=== PATIENT | male | born 1945 | race Caucasian/White ===

== ENCOUNTER 2017-12-06 09:14 | Inpatient (IN) | payer MEDICARE, OTHER ==
[~2017-12-06] VITALS: Ht 180.3 cm; Wt 79.9 kg
[~2017-12-06 09:14] MED LIST: COLC0.6T69 PO; FURO80TA87 PO; METH4TAB81 PO
[2017-12-06 09:54] LABS: BASOPHILS % (AUTO) 0.5 % (0-1); EOSINOPHILS # (AUTO) 0.6 X10'3 (0-0.9); EOSINOPHILS % (AUTO) 7.8 % (0-6); HEMOGLOBIN 12.2 g/dl (14.0-17.9); MEAN CORPUSCULAR HEMOGLOBIN 31.2 PG (27.0-31.0); MEAN CORPUSCULAR HGB CONC 33.9 % (33.0-36.5); MEAN PLATELET VOLUME 8.4 FL (7.4-10.4); MONOCYTES # (AUTO) 0.6 X10'3 (0-0.9); NEUTROPHILS % (AUTO) 60.7 % (42-75); PLATELET COUNT 243 X10'3 (140-440); RED BLOOD COUNT 3.91 X10'6 (4.70-6.10); RED CELL DISTRIBUTION WIDTH 16.8 % (11.5-14.5); WHITE BLOOD COUNT 8.2 X10'3 (4.5-11.0)
[2017-12-06 10:04] LABS: PARTIAL THROMBOPLASTIN TIME 25 SECONDS (22-32); PROTHROMBIN TIME 10.7 SECONDS (9.0-12.0)
[2017-12-06 10:10] LABS: ALANINE AMINOTRANSFERASE 18 U/L (12-78); ALBUMIN 4.3 G/DL (3.4-5.0); ALBUMIN/GLOBULIN RATIO 1.1 (1.1-1.5); ALKALINE PHOSPHATASE 106 IU/L (46-116); ANION GAP 10 (8-16); ASPARTATE AMINO TRANSFERASE 22 U/L (10-37); BILIRUBIN,TOTAL 0.5 MG/DL (0.1-1.0); BLOOD UREA NITROGEN 42 MG/DL (7-18); BUN/CREATININE RATIO 27.1 (5.4-32.0); CALCIUM 9.1 MG/DL (8.5-10.1); CHLORIDE 104 MMOL/L (99-107); CREATININE 1.55 MG/DL (0.60-1.10); GLUCOSE 109 MG/DL (70-104); POTASSIUM 4.9 MMOL/L (3.5-5.1); SODIUM 138 MMOL/L (135-145); TOTAL CARBON DIOXIDE 24.2 MMOL/L (24-32); TOTAL PROTEIN 8.1 G/DL (6.4-8.2); eGFR 45 ML/MIN
[2017-12-06] MEDS ORDERED: regadenoson 0.4mg/5ml syringe IV ONE (11:25)
[2017-12-06] MEDS ORDERED: metoprolol tartrate 1mg/ml inj IV PRN (11:25)
[2017-12-06] MEDS ORDERED: aspirin 81mg tab.chew PO ONE (11:25)
[2017-12-06] MEDS ORDERED: aminophylline 250mg/10ml inj. IV PRN (11:25)
[2017-12-06] MEDS ORDERED: HYDROcodone/acetaminophen 5mg/325mg tablet PO PRN (11:25)
[2017-12-06] MEDS ORDERED: ondansetron/PF 4mg/2ml inj IV PRN (11:25)
[2017-12-06] MEDS ORDERED: nitroGLYCERIN 0.4mg SUBLingual tab SL PRN (11:25)
[2017-12-06] MEDS ORDERED: mag hydrox/Alum hydrox/simeth 30ml oral suspension PO PRN (11:25)
[2017-12-06] MEDS ORDERED: magnesium hydroxide 30ml (MOM) UD suspension PO PRN (11:25)
[2017-12-06] MEDS ORDERED: acetaminophen 325mg tablet PO PRN ×2 (11:25)
[2017-12-06] MEDS ORDERED: lisinopril 10 MG tablet PO ONE (11:30)
[2017-12-06] MEDS ORDERED: isoflurane 100ml inhalation liquid IH ONE (13:07)
[2017-12-06 14:30] VITALS: BP 119/62
[2017-12-06 18:00] VITALS: BP 132/68
[2017-12-06] MEDS ORDERED: temazepam 15mg capsule PO PRN (21:00)
[2017-12-06 22:00] VITALS: BP 111/48
[2017-12-07] VITALS (14 sets, daily range): BP systolic 96–152; BP diastolic 38–69
[2017-12-07 05:24] LABS: BASOPHILS % (AUTO) 0.5 % (0-1); EOSINOPHILS # (AUTO) 0.6 X10'3 (0-0.9); EOSINOPHILS % (AUTO) 7.7 % (0-6); HEMOGLOBIN 11.6 g/dl (14.0-17.9); LYMPHOCYTES # (AUTO) 2.2 X10'3 (1.1-4.8); LYMPHOCYTES % (AUTO) 26.4 % (21-51); MEAN CORPUSCULAR HEMOGLOBIN 30.9 PG (27.0-31.0); MEAN CORPUSCULAR HGB CONC 34.2 % (33.0-36.5); MEAN CORPUSCULAR VOLUME 90.4 FL (78-98); MEAN PLATELET VOLUME 8.9 FL (7.4-10.4); MONOCYTES # (AUTO) 0.7 X10'3 (0-0.9); MONOCYTES % (AUTO) 8.6 % (2-12); NEUTROPHILS # (AUTO) 4.7 X10'3 (1.8-7.7); NEUTROPHILS % (AUTO) 56.8 % (42-75); PLATELET COUNT 219 X10'3 (140-440); RED BLOOD COUNT 3.76 X10'6 (4.70-6.10); RED CELL DISTRIBUTION WIDTH 16.3 % (11.5-14.5); WHITE BLOOD COUNT 8.3 X10'3 (4.5-11.0)
[2017-12-07 06:08] LABS: ALBUMIN 3.8 G/DL (3.4-5.0); ANION GAP 14 (8-16); BLOOD UREA NITROGEN 31 MG/DL (7-18); BUN/CREATININE RATIO 27.7 (5.4-32.0); CALCIUM 9.4 MG/DL (8.5-10.1); CHLORIDE 106 MMOL/L (99-107); CHOL/HDL RATIO 6.1 (0.00-4.99); CHOLESTEROL 238 MG/DL (0-200); CREATININE 1.12 MG/DL (0.60-1.10); GLUCOSE 103 MG/DL (70-104); HDL CHOLESTEROL 39 MG/DL (35-60); LDL CHOLESTEROL 144 MG/DL (50-100); POTASSIUM 4.7 MMOL/L (3.5-5.1); SODIUM 141 MMOL/L (135-145); TRIGLYCERIDES 278 MG/DL (20-135); eGFR 65 ML/MIN
[2017-12-07] MEDS: aspirin 81mg tablet.DR PO SCH (07:10)
[2017-12-07] MEDS ORDERED: aminophylline inj. 10 ML IV ONE (08:55)
[2017-12-07] MEDS ORDERED: regadenoson 0.4mg/5ml syringe IV ONE ×2 (08:55→09:00)
[2017-12-07 08:56] LABS: CREATINE KINASE 86 U/L (39-308); TROPONIN I 0.11 NG/ML (0.0-0.05)
[2017-12-07] MEDS ORDERED: sodium chloride 0.45% 1,000 ML IV SCH (12:40)
[2017-12-07] MEDS: sodium bicarbonate (8.4%) inj. 150 MEQ in sodium chloride 0.45% 1,000 ML IV SCH (16:15)
[2017-12-07] MEDS ORDERED: atorvastatin 20mg tablet PO SCH (20:00)
[2017-12-07] MEDS: carVEDilol 3.125mg tablet PO SCH (21:02)
[2017-12-07] MEDS: acetylcysteine 200 MG/ml 4ml vial PO SCH (21:03)
[2017-12-08] VITALS (15 sets, daily range): BP systolic 113–144; BP diastolic 61–83
[2017-12-08] MEDS: sodium bicarbonate (8.4%) inj. 150 MEQ in sodium chloride 0.45% 1,000 ML IV SCH ×2 (03:37→19:18)
[2017-12-08 06:32] LABS: ALBUMIN 3.5 G/DL (3.4-5.0); ANION GAP 9 (8-16); BLOOD UREA NITROGEN 26 MG/DL (7-18); BUN/CREATININE RATIO 22.4 (5.4-32.0); CHLORIDE 103 MMOL/L (99-107); CREATININE 1.16 MG/DL (0.60-1.10); GLUCOSE 123 MG/DL (70-104); POTASSIUM 4.5 MMOL/L (3.5-5.1); SODIUM 140 MMOL/L (135-145); TOTAL CARBON DIOXIDE 27.9 MMOL/L (24-32); eGFR 62 ML/MIN
[2017-12-08] MEDS ORDERED: enoxaparin 40mg/0.4ml syringe SUBCUT SCH (08:00)
[2017-12-08] MEDS: aspirin 81mg tablet.DR PO SCH (08:24)
[2017-12-08] MEDS: carVEDilol 3.125mg tablet PO SCH ×2 (08:24→20:13)
[2017-12-08] MEDS: acetylcysteine 200 MG/ml 4ml vial PO SCH ×2 (08:27→20:00)
[2017-12-08] MEDS ORDERED: iohexol 350MG/ML 100ml bottle IV ONE (10:07)
[2017-12-08] MEDS ORDERED: heparin 1,000unit/ml 10ml vial 10 ML ONE (10:07)
[2017-12-08] MEDS ORDERED: LIDOcaine 1%/PF (10mg/ml) 5ml vial ONE (10:07)
[2017-12-08] MEDS ORDERED: nitroGLYCERIN-Tridil 50MG/D5W 250 ML IV ONE (10:07)
[2017-12-08] MEDS ORDERED: iohexol 350 MG/ML 50ML vial IV ONE ×2 (10:07→10:58)
[2017-12-08] MEDS ORDERED: midazolam 2 mg/2 ml injection ONE (10:08)
[2017-12-08] MEDS ORDERED: fentaNYL/PF 50MCG/1 ML 2ML syringe ONE (10:08)
[2017-12-08] MEDS ORDERED: ringers solution, lacted 1,000 ML IV SCH (13:24)
[2017-12-08] MEDS ORDERED: MESSAGE TO NURSING PO ONE ×2 (13:25)
[2017-12-08] MEDS ORDERED: mupirocin 2% ointment 22GM NS SCH (20:00)
[2017-12-09 03:00] VITALS: BP 125/57
[2017-12-09 05:12] LABS: BASOPHILS % (AUTO) 0.2 % (0-1); EOSINOPHILS # (AUTO) 0.7 X10'3 (0-0.9); EOSINOPHILS % (AUTO) 7.7 % (0-6); HEMATOCRIT 32.9 % (42.0-52.0); HEMOGLOBIN 10.9 g/dl (14.0-17.9); LYMPHOCYTES # (AUTO) 2.2 X10'3 (1.1-4.8); MEAN CORPUSCULAR HEMOGLOBIN 30.7 PG (27.0-31.0); MEAN CORPUSCULAR HGB CONC 33.3 % (33.0-36.5); MEAN CORPUSCULAR VOLUME 92.1 FL (78-98); MEAN PLATELET VOLUME 8.8 FL (7.4-10.4); MONOCYTES # (AUTO) 0.8 X10'3 (0-0.9); MONOCYTES % (AUTO) 8.4 % (2-12); NEUTROPHILS # (AUTO) 5.5 X10'3 (1.8-7.7); NEUTROPHILS % (AUTO) 59.7 % (42-75); PLATELET COUNT 220 X10'3 (140-440); RED BLOOD COUNT 3.57 X10'6 (4.70-6.10); WHITE BLOOD COUNT 9.1 X10'3 (4.5-11.0)
[2017-12-09 05:31] LABS: ALBUMIN 3.3 G/DL (3.4-5.0); ANION GAP 7 (8-16); BLOOD UREA NITROGEN 17 MG/DL (7-18); BUN/CREATININE RATIO 15.7 (5.4-32.0); CHLORIDE 103 MMOL/L (99-107); CHOL/HDL RATIO 6.3 (0.00-4.99); CHOLESTEROL 208 MG/DL (0-200); CREATININE 1.08 MG/DL (0.60-1.10); GLUCOSE 97 MG/DL (70-104); HDL CHOLESTEROL 33 MG/DL (35-60); LDL CHOLESTEROL 119 MG/DL (50-100); POTASSIUM 4.5 MMOL/L (3.5-5.1); SODIUM 140 MMOL/L (135-145); TOTAL CARBON DIOXIDE 29.6 MMOL/L (24-32); TRIGLYCERIDES 268 MG/DL (20-135); eGFR 68 ML/MIN
[2017-12-09 07:00] VITALS: BP 114/63
[2017-12-09] MEDS: carVEDilol 3.125mg tablet PO SCH ×2 (07:52→20:23)
[2017-12-09] MEDS: aspirin 81mg tablet.DR PO SCH (07:52)
[2017-12-09 09:36] LABS: ISTAT Hct MIX 30 %PCV (42-52); ISTAT O2 SATURATION MIX VENOUS 65 % (60-80); ISTAT SOURCE MIX
[2017-12-09 09:36] LABS: ISTAT HGB ART 10.2 g/dl (14.0-18.0); ISTAT Hct ART 30 %PCV (42-52); ISTAT O2 SATURATION ARTERIAL 95 % (95-98); ISTAT SOURCE ART
[2017-12-09] MEDS ORDERED: MESSAGE TO NURSING PO ONE (10:00)
[2017-12-09 11:00] VITALS: BP 122/49
[2017-12-09 15:00] VITALS: BP 139/43
[2017-12-09 17:25] LABS: ABG BASE EXCESS 5.9 mmol/L (-2.0-3.0); ABG HCO3 29.8 mmol/L (22.0-26.0); ABG OXYGEN SATURATION 94.8 % (95-98); ABG PCO2 (T) 40.7 mmHg (35.0-48.0); ABG PH (T) 7.483 (7.350-7.450); ABG PO2 (T) 69.1 mmHg (83-108); ALLEN'S TEST Positive; FCOHb 0.2 % (0.5-1.5); FMetHb 0.3 % (0.3-1.12); FO2Hb 94.3 % (94-100); TOTAL HEMOGLOBIN 13.7 G/dl (14.0-18.0)
[2017-12-09 19:00] VITALS: BP 137/79
[2017-12-09] MEDS: atorvastatin 20mg tablet PO SCH ×2 (20:00→20:23)
[2017-12-09] MEDS: mupirocin 2% ointment 22GM NS SCH (21:31)
[2017-12-09 23:00] VITALS: BP 123/69
[2017-12-10] VITALS (10 sets, daily range): BP systolic 111–148; BP diastolic 48–72
[2017-12-10 05:07] LABS: BASOPHILS # (AUTO) 0.1 X10'3 (0-0.2); BASOPHILS % (AUTO) 0.7 % (0-1); EOSINOPHILS # (AUTO) 0.8 X10'3 (0-0.9); EOSINOPHILS % (AUTO) 7.7 % (0-6); HEMATOCRIT 34.2 % (42.0-52.0); HEMOGLOBIN 11.5 g/dl (14.0-17.9); LYMPHOCYTES # (AUTO) 2.3 X10'3 (1.1-4.8); LYMPHOCYTES % (AUTO) 21.6 % (21-51); MEAN CORPUSCULAR HEMOGLOBIN 30.8 PG (27.0-31.0); MEAN CORPUSCULAR HGB CONC 33.6 % (33.0-36.5); MEAN CORPUSCULAR VOLUME 91.7 FL (78-98); MEAN PLATELET VOLUME 8.4 FL (7.4-10.4); MONOCYTES # (AUTO) 0.7 X10'3 (0-0.9); NEUTROPHILS # (AUTO) 6.6 X10'3 (1.8-7.7); PLATELET COUNT 223 X10'3 (140-440); RED BLOOD COUNT 3.73 X10'6 (4.70-6.10); RED CELL DISTRIBUTION WIDTH 16.1 % (11.5-14.5); WHITE BLOOD COUNT 10.5 X10'3 (4.5-11.0)
[2017-12-10 05:22] LABS: PARTIAL THROMBOPLASTIN TIME 22 SECONDS (22-32); PROTHROMBIN TIME 10.6 SECONDS (9.0-12.0)
[2017-12-10 05:30] LABS: ALBUMIN 3.7 G/DL (3.4-5.0); ANION GAP 8 (8-16); BLOOD UREA NITROGEN 20 MG/DL (7-18); BUN/CREATININE RATIO 16.4 (5.4-32.0); CALCIUM 9.1 MG/DL (8.5-10.1); CHLORIDE 103 MMOL/L (99-107); CREATININE 1.22 MG/DL (0.60-1.10); GLUCOSE 111 MG/DL (70-104); POTASSIUM 4.3 MMOL/L (3.5-5.1); SODIUM 140 MMOL/L (135-145); TOTAL CARBON DIOXIDE 29.3 MMOL/L (24-32); eGFR 59 ML/MIN
[2017-12-10] MEDS ORDERED: LORazepam 2 mg/ml vial IV PRN (05:30)
[2017-12-10] MEDS ORDERED: famotidine 20mg tablet PO ONE ×2 (05:30→12:00)
[2017-12-10] MEDS ORDERED: ringers solution, lacted 1,000 ML IV SCH ×2 (06:00→12:00)
[2017-12-10] MEDS ORDERED: methylPREDNISolone sod. succ. 500mg inj ONE (08:00)
[2017-12-10] MEDS ORDERED: sodium bicarbonate (8.4%) 1 mEq/ml syringe ONE (08:00)
[2017-12-10] MEDS: carVEDilol 3.125mg tablet PO SCH (08:00)
[2017-12-10] MEDS ORDERED: LIDOcaine 2% (20 mg/ml) 5ml cardiac syringe ONE (08:00)
[2017-12-10] MEDS ORDERED: potassium Cl 2 mEq/ml inj IV ONE (08:00)
[2017-12-10] MEDS ORDERED: papaverine 30 mg/ml 2ml inj. ONE (08:00)
[2017-12-10] MEDS ORDERED: albumin (human) 25% 100 ML IV solution IV ONE (08:00)
[2017-12-10] MEDS ORDERED: calcium chloride 100 MG/1 ML inj IV ONE (08:00)
[2017-12-10] MEDS ORDERED: heparin 10,000 units/1 ML INJ ONE ×2 (08:00)
[2017-12-10] MEDS ORDERED: magnesium 1 GM/2 ML inj ONE (08:00)
[2017-12-10] MEDS ORDERED: phenylephrine 10mg/ml inj IV ONE (08:00)
[2017-12-10] MEDS ORDERED: heparin 1,000 units/ml 10ml inj ONE (08:00)
[2017-12-10] MEDS: mupirocin 2% ointment 22GM NS SCH ×2 (08:26→20:04)
[2017-12-10] MEDS: aspirin 81mg tablet.DR PO SCH (08:26)
[2017-12-10] MEDS ORDERED: ceFAZolin inj. 2,000 MG in dextrose 5%-water 100 ML IV ONE (12:30)
[2017-12-10] MEDS: insulin regular, human 100 UNITS in normal saline 100ml IV soln 99 ML IV SCH ×4 (12:30→21:05)
[2017-12-10] MEDS ORDERED: vancomycin/NS 1 GM ADD-VANTAGE 250 ML IV ONE (12:30)
[2017-12-10] MEDS ORDERED: heparin 10,000 units/1 ML INJ IR ONE (12:30)
[2017-12-10] MEDS ORDERED: papaverine 30 mg/ml 2ml inj. IA ONE (12:30)
[2017-12-10] MEDS ORDERED: tranexamic acid inj. 780 MG in normal saline 100ml IV soln 100 ML IV ONE (13:10)
[2017-12-10] MEDS ORDERED: SUFENTANIL CITRATE 50 MCG/ML 2ml ampule IV ONE (13:11)
[2017-12-10] MEDS ORDERED: LORazepam 2 mg/ml vial ONE (13:14)
[2017-12-10] MEDS ORDERED: LIDOcaine 1%/PF (10mg/ml) 5ml vial ONE (13:30)
[2017-12-10] MEDS ORDERED: propofol inj 20 ML IV ONE (13:30)
[2017-12-10] MEDS ORDERED: rocuronium 10mg/ml inj IV ONE ×2 (13:30→14:10)
[2017-12-10 13:56] LABS: ABG BASE EXCESS 0.2 mmol/L (-2.0-3.0); ABG HCO3 23.8 mmol/L (22.0-26.0); ABG OXYGEN SATURATION 99.4 % (95-98); ABG PCO2 34.7 mmHg (35.0-45.0); ABG PH 7.454 (7.350-7.450); ABG PO2 333.3 mmHg (60.0-100.0); CL (ABG) 103 mmol/L (99-107); FCOHb 0.3 % (0.5-1.5); FMetHb 0.3 % (0.3-1.12); FO2Hb 98.8 % (94-100); GLUCOSE (ABG) 85 mg/dl (70-105); IONIZED CA (ABG) 1.13 mmol/L (1.03-1.32); K (ABG) 4.3 mmol/L (3.3-5.1); NA (ABG) 137 mmol/L (135-145); TOTAL HEMOGLOBIN 10.5 G/dl (14.0-18.0)
[2017-12-10 14:06] LABS: ACT @ 1.70 U 317 SEC (193-297); ACT @ 2.84 U 426 SEC (260-420); BASELINE ACT 137 SEC (101-148); PATIENT WEIGHT 78.0k KG
[2017-12-10 14:45] LABS: ABG BASE EXCESS 0.4 mmol/L (-2.0-3.0); ABG HCO3 24.5 mmol/L (22.0-26.0); ABG OXYGEN SATURATION 98.8 % (95-98); ABG PCO2 37.2 mmHg (35.0-45.0); ABG PH 7.436 (7.350-7.450); ABG PO2 168.7 mmHg (60.0-100.0); CL (ABG) 105 mmol/L (99-107); FCOHb 0.3 % (0.5-1.5); FMetHb 0.1 % (0.3-1.12); FO2Hb 98.4 % (94-100); GLUCOSE (ABG) 96 mg/dl (70-105); IONIZED CA (ABG) 1.11 mmol/L (1.03-1.32); K (ABG) 4.6 mmol/L (3.3-5.1); NA (ABG) 137 mmol/L (135-145); TOTAL HEMOGLOBIN 10.1 G/dl (14.0-18.0)
[2017-12-10 15:10] LABS: ABG HCO3 23.6 mmol/L (22.0-26.0); ABG OXYGEN SATURATION 99.2 % (95-98); ABG PCO2 33.4 mmHg (35.0-45.0); ABG PH 7.467 (7.350-7.450); ABG PO2 380.7 mmHg (60.0-100.0); CL (ABG) 102 mmol/L (99-107); FCOHb 0.2 % (0.5-1.5); FMetHb 0.5 % (0.3-1.12); FO2Hb 98.5 % (94-100); GLUCOSE (ABG) 96 mg/dl (70-105); IONIZED CA (ABG) 1.03 mmol/L (1.03-1.32); NA (ABG) 133 mmol/L (135-145); TOTAL HEMOGLOBIN 7.7 G/dl (14.0-18.0)
[2017-12-10 15:25] LABS: ABG BASE EXCESS VENOUS -0.8 mmol/L; ABG HCO3 VENOUS 23.4 mmol/L; ABG PCO2 VENOUS 36.8 mmHg; ABG PO2 VENOUS 70.4 mmHg; CL (ABG) 102 mmol/L (99-107); FCOHb VENOUS 0.4 %; FMetHb VENOUS 0.4 %; FO2Hb VENOUS 92.2 %; GLUCOSE (ABG) 100 mg/dl (70-105); IONIZED CA (ABG) 1.07 mmol/L (1.03-1.32); K (ABG) 5.9 mmol/L (3.3-5.1); NA (ABG) 134 mmol/L (135-145); TOTAL HEMOGLOBIN 8.2 G/dl (14.0-18.0)
[2017-12-10 15:55] LABS: ABG BASE EXCESS -1.3 mmol/L (-2.0-3.0); ABG HCO3 22.5 mmol/L (22.0-26.0); ABG OXYGEN SATURATION 99.1 % (95-98); ABG PCO2 33.6 mmHg (35.0-45.0); ABG PH 7.444 (7.350-7.450); CL (ABG) 103 mmol/L (99-107); FCOHb 0.2 % (0.5-1.5); FMetHb 0.5 % (0.3-1.12); FO2Hb 98.4 % (94-100); GLUCOSE (ABG) 101 mg/dl (70-105); IONIZED CA (ABG) 1.09 mmol/L (1.03-1.32); NA (ABG) 133 mmol/L (135-145); TOTAL HEMOGLOBIN 8.4 G/dl (14.0-18.0)
[2017-12-10 16:41] LABS: ABG BASE EXCESS 0.5 mmol/L (-2.0-3.0); ABG HCO3 24.1 mmol/L (22.0-26.0); ABG OXYGEN SATURATION 97.2 % (95-98); ABG PCO2 34.4 mmHg (35.0-45.0); ABG PH 7.464 (7.350-7.450); ABG PO2 99.8 mmHg (60.0-100.0); CL (ABG) 104 mmol/L (99-107); FCOHb 0.3 % (0.5-1.5); FMetHb 0.3 % (0.3-1.12); FO2Hb 96.6 % (94-100); GLUCOSE (ABG) 100 mg/dl (70-105); IONIZED CA (ABG) 1.29 mmol/L (1.03-1.32); NA (ABG) 134 mmol/L (135-145); TOTAL HEMOGLOBIN 8.1 G/dl (14.0-18.0)
[2017-12-10] MEDS ORDERED: DOPamine 400mg/D5W 250ml 250 ML IV PRN (17:15)
[2017-12-10] MEDS ORDERED: HYDROcodone/acetaminophen 10/325mg tab PO PRN ×2 (17:15)
[2017-12-10] MEDS ORDERED: potassium Cl 20mEq/100mL bag 100 ML IV PRN ×3 (17:15)
[2017-12-10] MEDS: sodium chloride 0.45% 1,000 ML IV SCH ×2 (17:15→19:41)
[2017-12-10] MEDS ORDERED: dextrose 50%-water 50ml dispensing syringe IV PRN (17:15)
[2017-12-10] MEDS ORDERED: niCARDipine/sod cl 20mg/200ml 200 ML IV PRN (17:15)
[2017-12-10] MEDS ORDERED: metoclopramide 5 mg/ml inj IV PRN (17:15)
[2017-12-10] MEDS ORDERED: magnesium 2GM in 50ml NS 50 ML IV PRN (17:15)
[2017-12-10] MEDS: insulin regular, human inj. 100 UNITS in normal saline 100ml IV soln 100 ML IV SCH ×2 (17:15)
[2017-12-10] MEDS ORDERED: sodium phosphate inj. 15 MMOL in dextrose 5%-water 150 ML IV PRN (17:15)
[2017-12-10] MEDS ORDERED: sodium phosphate inj. 30 MMOL in dextrose 5%-water 250 ML IV PRN (17:15)
[2017-12-10] MEDS ORDERED: magnesium 4gm in 100ml NS 100 ML IV PRN (17:15)
[2017-12-10] MEDS ORDERED: morphine 4 MG/ML inj SYRINge IV PRN (17:15)
[2017-12-10] MEDS ORDERED: nitroGLYCERIN-Tridil 50MG/D5W 250 ML IV PRN (17:15)
[2017-12-10] MEDS ORDERED: magnesium hydroxide 30ml (MOM) UD suspension PO PRN (17:15)
[2017-12-10] MEDS ORDERED: acetaminophen 325mg tablet PO PRN (17:15)
[2017-12-10] MEDS ORDERED: Neutra Phos packet PO PRN (17:15)
[2017-12-10] MEDS ORDERED: normal saline 250ml IV soln 250 ML IV PRN (17:15)
[2017-12-10 17:36] LABS: ABG BASE EXCESS 1.1 mmol/L (-2.0-3.0); ABG HCO3 24.7 mmol/L (22.0-26.0); ABG OXYGEN SATURATION 97.9 % (95-98); ABG PCO2 (T) 34.6 mmHg (35.0-48.0); ABG PO2 (T) 128.2 mmHg (83-108); FCOHb 0.2 % (0.5-1.5); FMetHb 0.2 % (0.3-1.12); FO2Hb 97.5 % (94-100); PATIENT TEMPERATURE 36.7; PEEP 5 cm H2O; RESPIRATORY RATE 12 b/min; TIDAL VOLUME 600 mL; TOTAL HEMOGLOBIN 9.8 G/dl (14.0-18.0)
[2017-12-10 17:48] LABS: BASOPHILS % (AUTO) 0.3 % (0-1); EOSINOPHILS # (AUTO) 0.3 X10'3 (0-0.9); EOSINOPHILS % (AUTO) 2.7 % (0-6); HEMATOCRIT 27.1 % (42.0-52.0); HEMOGLOBIN 9.1 g/dl (14.0-17.9); LYMPHOCYTES # (AUTO) 1.2 X10'3 (1.1-4.8); LYMPHOCYTES % (AUTO) 9.3 % (21-51); MEAN CORPUSCULAR HEMOGLOBIN 31.2 PG (27.0-31.0); MEAN CORPUSCULAR HGB CONC 33.7 % (33.0-36.5); MEAN CORPUSCULAR VOLUME 92.5 FL (78-98); MEAN PLATELET VOLUME 8.3 FL (7.4-10.4); MONOCYTES # (AUTO) 0.6 X10'3 (0-0.9); MONOCYTES % (AUTO) 4.9 % (2-12); NEUTROPHILS # (AUTO) 10.8 X10'3 (1.8-7.7); NEUTROPHILS % (AUTO) 82.8 % (42-75); PLATELET COUNT 163 X10'3 (140-440); RED BLOOD COUNT 2.92 X10'6 (4.70-6.10); RED CELL DISTRIBUTION WIDTH 15.8 % (11.5-14.5)
[2017-12-10] MEDS: albumin (Human) 5% 250ml 250 ML IV PRN ×2 (17:54→18:03)
[2017-12-10] MEDS: morphine 4 MG/ML inj SYRINge IV PRN ×5 (18:00→22:23)
[2017-12-10] MEDS: insulin Lispro (HumaLOG) vial - multi-dose SQ SCH (18:00)
[2017-12-10 18:02] LABS: INR 1.2 INR; PARTIAL THROMBOPLASTIN TIME 24 SECONDS (22-32); PROTHROMBIN TIME 11.9 SECONDS (9.0-12.0)
[2017-12-10 18:14] LABS: ALANINE AMINOTRANSFERASE 13 U/L (12-78); ALBUMIN 2.9 G/DL (3.4-5.0); ALBUMIN/GLOBULIN RATIO 1.2 (1.1-1.5); ALKALINE PHOSPHATASE 64 IU/L (46-116); ANION GAP 9 (8-16); ASPARTATE AMINO TRANSFERASE 25 U/L (10-37); BILIRUBIN,TOTAL 0.6 MG/DL (0.1-1.0); BLOOD UREA NITROGEN 19 MG/DL (7-18); BUN/CREATININE RATIO 17.9 (5.4-32.0); CHLORIDE 107 MMOL/L (99-107); CREATININE 1.06 MG/DL (0.60-1.10); GLUCOSE 113 MG/DL (70-104); MAGNESIUM 3.3 MG/DL (1.5-2.4); PHOSPHORUS 1.8 MG/DL (2.3-4.5); POTASSIUM 5.9 MMOL/L (3.5-5.1); SODIUM 140 MMOL/L (135-145); TOTAL CARBON DIOXIDE 24.4 MMOL/L (24-32); TOTAL PROTEIN 5.4 G/DL (6.4-8.2); eGFR 69 ML/MIN
[2017-12-10] MEDS: ketorolac tromethamine 15mg/ml inj. IV SCH (20:03)
[2017-12-10] MEDS: ceFAZolin 1GM/D5W- ADD-VANTAGE 50 ML IV SCH (20:03)
[2017-12-10] MEDS: docusate sod 100mg capsule PO SCH (20:23)
[2017-12-10] MEDS: ondansetron/PF 4mg/2ml inj IV PRN (20:46)
[2017-12-10 22:45] LABS: BASOPHILS % (AUTO) 0 % (0-1); EOSINOPHILS # (AUTO) 0.1 X10'3 (0-0.9); EOSINOPHILS % (AUTO) 0.8 % (0-6); HEMATOCRIT 23.7 % (42.0-52.0); HEMOGLOBIN 7.9 g/dl (14.0-17.9); LYMPHOCYTES # (AUTO) 0.5 X10'3 (1.1-4.8); LYMPHOCYTES % (AUTO) 3.8 % (21-51); MEAN CORPUSCULAR HEMOGLOBIN 30.8 PG (27.0-31.0); MEAN CORPUSCULAR HGB CONC 33.5 % (33.0-36.5); MONOCYTES # (AUTO) 0.2 X10'3 (0-0.9); MONOCYTES % (AUTO) 1.8 % (2-12); NEUTROPHILS # (AUTO) 12.4 X10'3 (1.8-7.7); NEUTROPHILS % (AUTO) 93.6 % (42-75); PLATELET COUNT 163 X10'3 (140-440); RED BLOOD COUNT 2.57 X10'6 (4.70-6.10); RED CELL DISTRIBUTION WIDTH 16.2 % (11.5-14.5); WHITE BLOOD COUNT 13.3 X10'3 (4.5-11.0)
[2017-12-10 22:54] LABS: ALBUMIN 3.6 G/DL (3.4-5.0); ANION GAP 8 (8-16); BLOOD UREA NITROGEN 19 MG/DL (7-18); BUN/CREATININE RATIO 15.7 (5.4-32.0); CALCIUM 8.3 MG/DL (8.5-10.1); CHLORIDE 108 MMOL/L (99-107); CREATININE 1.21 MG/DL (0.60-1.10); GLUCOSE 150 MG/DL (70-104); MAGNESIUM 2.7 MG/DL (1.5-2.4); POTASSIUM 5.1 MMOL/L (3.5-5.1); SODIUM 140 MMOL/L (135-145); TOTAL CARBON DIOXIDE 24.1 MMOL/L (24-32); eGFR 59 ML/MIN
[2017-12-10 22:57] LABS: INR 1.1 INR; PARTIAL THROMBOPLASTIN TIME 32 SECONDS (22-32); PROTHROMBIN TIME 11.4 SECONDS (9.0-12.0)
[2017-12-10 23:18] LABS: PHOSPHORUS 2.4 MG/DL (2.3-4.5)
[2017-12-11] VITALS (27 sets, daily range): BP systolic 103–140; BP diastolic 45–74
[2017-12-11] MEDS: albumin (Human) 5% 250ml 250 ML IV PRN (00:01)
[2017-12-11] MEDS: insulin regular, human 100 UNITS in normal saline 100ml IV soln 99 ML IV SCH ×4 (00:01→03:35)
[2017-12-11 01:31] LABS: ABG BASE EXCESS -1.7 mmol/L (-2.0-3.0); ABG HCO3 23.2 mmol/L (22.0-26.0); ABG OXYGEN SATURATION 94.5 % (95-98); ABG PH (T) 7.391 (7.350-7.450); ABG PO2 (T) 74.8 mmHg (83-108); FCOHb 0.3 % (0.5-1.5); FMetHb 0.1 % (0.3-1.12); FO2Hb 94.1 % (94-100); PATIENT TEMPERATURE 36.6; PEEP 5 cm H2O; TOTAL HEMOGLOBIN 7.7 G/dl (14.0-18.0)
[2017-12-11 03:02] LABS: BASOPHILS % (AUTO) 0 % (0-1); EOSINOPHILS # (AUTO) 0.2 X10'3 (0-0.9); EOSINOPHILS % (AUTO) 1.5 % (0-6); HEMOGLOBIN 7.2 g/dl (14.0-17.9); LYMPHOCYTES # (AUTO) 0.6 X10'3 (1.1-4.8); LYMPHOCYTES % (AUTO) 4.8 % (21-51); MEAN CORPUSCULAR HEMOGLOBIN 30.8 PG (27.0-31.0); MEAN CORPUSCULAR HGB CONC 33.4 % (33.0-36.5); MEAN CORPUSCULAR VOLUME 92.3 FL (78-98); MEAN PLATELET VOLUME 7.9 FL (7.4-10.4); MONOCYTES # (AUTO) 0.3 X10'3 (0-0.9); MONOCYTES % (AUTO) 2.3 % (2-12); NEUTROPHILS # (AUTO) 10.8 X10'3 (1.8-7.7); NEUTROPHILS % (AUTO) 91.4 % (42-75); PLATELET COUNT 149 X10'3 (140-440); RED BLOOD COUNT 2.34 X10'6 (4.70-6.10); RED CELL DISTRIBUTION WIDTH 15.8 % (11.5-14.5); WHITE BLOOD COUNT 11.8 X10'3 (4.5-11.0)
[2017-12-11 03:07] LABS: HEMATOCRIT 21.6 % (42.0-52.0)
[2017-12-11 03:13] LABS: INR 1.1 INR; PARTIAL THROMBOPLASTIN TIME 25 SECONDS (22-32)
[2017-12-11 03:19] LABS: ALANINE AMINOTRANSFERASE 15 U/L (12-78); ALBUMIN 3.6 G/DL (3.4-5.0); ALBUMIN/GLOBULIN RATIO 1.6 (1.1-1.5); ALKALINE PHOSPHATASE 55 IU/L (46-116); ANION GAP 8 (8-16); ASPARTATE AMINO TRANSFERASE 27 U/L (10-37); BILIRUBIN,TOTAL 0.6 MG/DL (0.1-1.0); BLOOD UREA NITROGEN 19 MG/DL (7-18); BUN/CREATININE RATIO 15.3 (5.4-32.0); CALCIUM 8.3 MG/DL (8.5-10.1); CHLORIDE 110 MMOL/L (99-107); CREATININE 1.24 MG/DL (0.60-1.10); GLUCOSE 121 MG/DL (70-104); MAGNESIUM 2.6 MG/DL (1.5-2.4); PHOSPHORUS 3.2 MG/DL (2.3-4.5); POTASSIUM 5.4 MMOL/L (3.5-5.1); SODIUM 143 MMOL/L (135-145); TOTAL PROTEIN 5.9 G/DL (6.4-8.2); eGFR 58 ML/MIN
[2017-12-11] MEDS: ketorolac tromethamine 15mg/ml inj. IV SCH ×3 (03:31→13:37)
[2017-12-11] MEDS: ceFAZolin 1GM/D5W- ADD-VANTAGE 50 ML IV SCH ×3 (04:28→20:09)
[2017-12-11 05:21] LABS: ACTIVATED CLOTTING TIME 135 SEC (101-148)
[2017-12-11 05:25] LABS: K (ABG) 6.6 mmol/L (3.3-5.1)
[2017-12-11 05:26] LABS: K (ABG) 6.5 mmol/L (3.3-5.1)
[2017-12-11] MEDS: ondansetron/PF 4mg/2ml inj IV PRN (05:41)
[2017-12-11] MEDS ORDERED: atorvastatin 10mg tablet PO SCH (08:00)
[2017-12-11] MEDS: docusate sod 100mg capsule PO SCH ×2 (08:00→20:08)
[2017-12-11] MEDS: aspirin 325mg tablet, delayed-release (Ecotrin) PO SCH (08:00)
[2017-12-11] MEDS: metoprolol tartrate 12.5mg (1/2 tablet) PO SCH ×2 (08:00→20:08)
[2017-12-11] MEDS: pantoprazole 40mg Tablet.DR PO SCH (08:01)
[2017-12-11] MEDS: mupirocin 2% ointment 22GM NS SCH ×2 (08:01→20:10)
[2017-12-11 08:10] LABS: HEMATOCRIT 25.8 % (42.0-52.0); HEMOGLOBIN 8.8 g/dl (14.0-17.9); MEAN CORPUSCULAR HEMOGLOBIN 31.6 PG (27.0-31.0); MEAN CORPUSCULAR HGB CONC 33.9 % (33.0-36.5); MEAN CORPUSCULAR VOLUME 93.2 FL (78-98); MEAN PLATELET VOLUME 8.7 FL (7.4-10.4); PLATELET COUNT 159 X10'3 (140-440); RED BLOOD COUNT 2.77 X10'6 (4.70-6.10); RED CELL DISTRIBUTION WIDTH 15.4 % (11.5-14.5); WHITE BLOOD COUNT 18.6 X10'3 (4.5-11.0)
[2017-12-11] MEDS: insulin Lispro (HumaLOG) vial - multi-dose SQ SCH ×2 (08:40→08:59)
[2017-12-11] MEDS: vancomycin/NS 1 GM ADD-VANTAGE 250 ML IV SCH ×3 (11:10→23:56)
[2017-12-11] MEDS: insulin regular, human inj. 100 UNITS in normal saline 100ml IV soln 100 ML IV SCH ×2 (17:15)
[2017-12-11] MEDS: lactobacillus rhamnosus 10,000 MMU CELLS/CAPSULE PO SCH (20:08)
[2017-12-11] MEDS: pravastatin 40mg tablet PO SCH (20:09)
[2017-12-11] MEDS ORDERED: pravastatin 10mg tablet PO SCH (21:00)
[2017-12-12] VITALS (26 sets, daily range): BP systolic 102–143; BP diastolic 44–75
[2017-12-12 03:50] LABS: BASOPHILS % (AUTO) 0 % (0-1); EOSINOPHILS % (AUTO) 0 % (0-6); HEMATOCRIT 23.4 % (42.0-52.0); HEMOGLOBIN 7.9 g/dl (14.0-17.9); LYMPHOCYTES # (AUTO) 0.8 X10'3 (1.1-4.8); MEAN CORPUSCULAR HEMOGLOBIN 31.3 PG (27.0-31.0); MEAN CORPUSCULAR HGB CONC 33.8 % (33.0-36.5); MEAN CORPUSCULAR VOLUME 92.7 FL (78-98); MEAN PLATELET VOLUME 9.2 FL (7.4-10.4); MONOCYTES # (AUTO) 1.1 X10'3 (0-0.9); MONOCYTES % (AUTO) 7.6 % (2-12); NEUTROPHILS % (AUTO) 86.4 % (42-75); PLATELET COUNT 124 X10'3 (140-440); RED BLOOD COUNT 2.52 X10'6 (4.70-6.10); RED CELL DISTRIBUTION WIDTH 15.8 % (11.5-14.5); WHITE BLOOD COUNT 13.9 X10'3 (4.5-11.0)
[2017-12-12 03:59] LABS: ALBUMIN 3.3 G/DL (3.4-5.0); ANION GAP 10 (8-16); BLOOD UREA NITROGEN 31 MG/DL (7-18); BUN/CREATININE RATIO 20.5 (5.4-32.0); CALCIUM 8.2 MG/DL (8.5-10.1); CHLORIDE 104 MMOL/L (99-107); CREATININE 1.51 MG/DL (0.60-1.10); GLUCOSE 128 MG/DL (70-104); MAGNESIUM 2.5 MG/DL (1.5-2.4); PHOSPHORUS 3.7 MG/DL (2.3-4.5); POTASSIUM 5.7 MMOL/L (3.5-5.1); SODIUM 137 MMOL/L (135-145); TOTAL CARBON DIOXIDE 23.1 MMOL/L (24-32); eGFR 46 ML/MIN
[2017-12-12] MEDS: ceFAZolin 1GM/D5W- ADD-VANTAGE 50 ML IV SCH (05:32)
[2017-12-12] MEDS: aspirin 325mg tablet, delayed-release (Ecotrin) PO SCH (07:22)
[2017-12-12] MEDS: metoprolol tartrate 12.5mg (1/2 tablet) PO SCH ×2 (07:22→20:09)
[2017-12-12] MEDS: mupirocin 2% ointment 22GM NS SCH (07:22)
[2017-12-12] MEDS: lactobacillus rhamnosus 10,000 MMU CELLS/CAPSULE PO SCH ×2 (07:22→20:08)
[2017-12-12] MEDS: docusate sod 100mg capsule PO SCH ×2 (07:22→20:09)
[2017-12-12] MEDS: pantoprazole 40mg Tablet.DR PO SCH (07:22)
[2017-12-12] MEDS ORDERED: atorvastatin 10mg tablet PO SCH (08:00)
[2017-12-12] MEDS: insulin Lispro (HumaLOG) vial - multi-dose SQ SCH (09:00)
[2017-12-12] MEDS ORDERED: magnesium 2GM in 50ml NS 50 ML IV PRN (11:00)
[2017-12-12] MEDS ORDERED: magnesium Cl slow-release 64mg tablet PO PRN (11:00)
[2017-12-12] MEDS ORDERED: potassium Cl 40MEQ/NS 500ml 500 ML IV PRN ×2 (11:00)
[2017-12-12] MEDS ORDERED: potassium Cl 20 mEq SR tablet PO PRN ×2 (11:00)
[2017-12-12] MEDS ORDERED: magnesium 4gm in 100ml NS 100 ML IV PRN (11:00)
[2017-12-12] MEDS ORDERED: furosemide 20 MG/2 ML vial IV ONE (12:10)
[2017-12-12 12:56] LABS: ALANINE AMINOTRANSFERASE 26 U/L (12-78); ALBUMIN 3.4 G/DL (3.4-5.0); ALBUMIN/GLOBULIN RATIO 1.3 (1.1-1.5); ALKALINE PHOSPHATASE 58 IU/L (46-116); ANION GAP 9 (8-16); ASPARTATE AMINO TRANSFERASE 34 U/L (10-37); BILIRUBIN,TOTAL 0.4 MG/DL (0.1-1.0); BLOOD UREA NITROGEN 31 MG/DL (7-18); BUN/CREATININE RATIO 23.1 (5.4-32.0); CALCIUM 8.5 MG/DL (8.5-10.1); CHLORIDE 103 MMOL/L (99-107); CREATININE 1.34 MG/DL (0.60-1.10); GLUCOSE 99 MG/DL (70-104); SODIUM 136 MMOL/L (135-145); TOTAL CARBON DIOXIDE 23.9 MMOL/L (24-32); TOTAL PROTEIN 6.1 G/DL (6.4-8.2); eGFR 53 ML/MIN
[2017-12-12] MEDS: magnesium Cl slow-release 64mg tablet PO SCH (20:00)
[2017-12-12] MEDS: potassium Cl 20 mEq SR tablet PO SCH (20:00)
[2017-12-12] MEDS: pravastatin 40mg tablet PO SCH (20:09)
[2017-12-13] VITALS (23 sets, daily range): BP systolic 114–156; BP diastolic 54–85
[2017-12-13 03:25] LABS: BASOPHILS % (AUTO) 0.2 % (0-1); EOSINOPHILS # (AUTO) 0.1 X10'3 (0-0.9); EOSINOPHILS % (AUTO) 0.9 % (0-6); HEMATOCRIT 26.3 % (42.0-52.0); HEMOGLOBIN 8.8 g/dl (14.0-17.9); LYMPHOCYTES # (AUTO) 1.5 X10'3 (1.1-4.8); LYMPHOCYTES % (AUTO) 12.3 % (21-51); MEAN CORPUSCULAR HEMOGLOBIN 30.8 PG (27.0-31.0); MEAN CORPUSCULAR HGB CONC 33.7 % (33.0-36.5); MEAN CORPUSCULAR VOLUME 91.4 FL (78-98); MEAN PLATELET VOLUME 8.9 FL (7.4-10.4); MONOCYTES # (AUTO) 0.9 X10'3 (0-0.9); MONOCYTES % (AUTO) 7.5 % (2-12); NEUTROPHILS # (AUTO) 9.9 X10'3 (1.8-7.7); NEUTROPHILS % (AUTO) 79.1 % (42-75); PLATELET COUNT 128 X10'3 (140-440); RED BLOOD COUNT 2.87 X10'6 (4.70-6.10); RED CELL DISTRIBUTION WIDTH 16.6 % (11.5-14.5); WHITE BLOOD COUNT 12.5 X10'3 (4.5-11.0)
[2017-12-13 03:35] LABS: ALBUMIN 3.3 G/DL (3.4-5.0); ANION GAP 8 (8-16); BLOOD UREA NITROGEN 33 MG/DL (7-18); BUN/CREATININE RATIO 26.2 (5.4-32.0); CALCIUM 8.8 MG/DL (8.5-10.1); CHLORIDE 104 MMOL/L (99-107); CREATININE 1.26 MG/DL (0.60-1.10); GLUCOSE 95 MG/DL (70-104); MAGNESIUM 2.1 MG/DL (1.5-2.4); POTASSIUM 4.4 MMOL/L (3.5-5.1); SODIUM 139 MMOL/L (135-145); TOTAL CARBON DIOXIDE 27.4 MMOL/L (24-32); eGFR 57 ML/MIN
[2017-12-13] MEDS: K and/or MAG REPLACEMENT MC SCH (07:08)
[2017-12-13] MEDS: pantoprazole 40mg Tablet.DR PO SCH (07:15)
[2017-12-13] MEDS: magnesium Cl slow-release 64mg tablet PO SCH ×2 (07:15→19:49)
[2017-12-13] MEDS: potassium Cl 20 mEq SR tablet PO SCH ×3 (07:15→19:49)
[2017-12-13] MEDS: docusate sod 100mg capsule PO SCH ×2 (07:15→19:49)
[2017-12-13] MEDS: metoprolol tartrate 12.5mg (1/2 tablet) PO SCH ×2 (07:15→19:48)
[2017-12-13] MEDS: aspirin 325mg tablet, delayed-release (Ecotrin) PO SCH (07:15)
[2017-12-13] MEDS: lactobacillus rhamnosus 10,000 MMU CELLS/CAPSULE PO SCH ×2 (07:15→19:49)
[2017-12-13] MEDS ORDERED: magnesium citrate 296ml oral solution PO ONE (09:30)
[2017-12-13] MEDS: pravastatin 40mg tablet PO SCH (19:49)
[2017-12-14] VITALS: BP 127/79
[2017-12-14 02:00] VITALS: BP 103/51
[2017-12-14 05:50] LABS: BASOPHILS % (AUTO) 0.3 % (0-1); EOSINOPHILS # (AUTO) 0.4 X10'3 (0-0.9); EOSINOPHILS % (AUTO) 3.5 % (0-6); HEMATOCRIT 27.1 % (42.0-52.0); HEMOGLOBIN 9.1 g/dl (14.0-17.9); LYMPHOCYTES # (AUTO) 1.8 X10'3 (1.1-4.8); MEAN CORPUSCULAR HEMOGLOBIN 30.7 PG (27.0-31.0); MEAN CORPUSCULAR HGB CONC 33.7 % (33.0-36.5); MEAN CORPUSCULAR VOLUME 91.3 FL (78-98); MEAN PLATELET VOLUME 9.2 FL (7.4-10.4); MONOCYTES # (AUTO) 0.8 X10'3 (0-0.9); MONOCYTES % (AUTO) 7.1 % (2-12); NEUTROPHILS # (AUTO) 7.7 X10'3 (1.8-7.7); NEUTROPHILS % (AUTO) 72.1 % (42-75); PLATELET COUNT 159 X10'3 (140-440); RED BLOOD COUNT 2.97 X10'6 (4.70-6.10); RED CELL DISTRIBUTION WIDTH 16.2 % (11.5-14.5); WHITE BLOOD COUNT 10.7 X10'3 (4.5-11.0)
[2017-12-14 06:00] VITALS: BP 114/78
[2017-12-14 06:20] LABS: ALBUMIN 3.2 G/DL (3.4-5.0); ANION GAP 6 (8-16); BLOOD UREA NITROGEN 26 MG/DL (7-18); BUN/CREATININE RATIO 23.2 (5.4-32.0); CALCIUM 8.9 MG/DL (8.5-10.1); CHLORIDE 104 MMOL/L (99-107); CREATININE 1.12 MG/DL (0.60-1.10); GLUCOSE 87 MG/DL (70-104); MAGNESIUM 2.6 MG/DL (1.5-2.4); POTASSIUM 5.2 MMOL/L (3.5-5.1); SODIUM 140 MMOL/L (135-145); TOTAL CARBON DIOXIDE 29.6 MMOL/L (24-32); eGFR 65 ML/MIN
[2017-12-14] MEDS: aspirin 325mg tablet, delayed-release (Ecotrin) PO SCH (07:10)
[2017-12-14] MEDS: lactobacillus rhamnosus 10,000 MMU CELLS/CAPSULE PO SCH (07:10)
[2017-12-14] MEDS: pantoprazole 40mg Tablet.DR PO SCH (07:10)
[2017-12-14] MEDS: potassium Cl 20 mEq SR tablet PO SCH (07:10)
[2017-12-14] MEDS: magnesium Cl slow-release 64mg tablet PO SCH (07:10)
[2017-12-14] MEDS: metoprolol tartrate 12.5mg (1/2 tablet) PO SCH (07:10)
[2017-12-14] MEDS: docusate sod 100mg capsule PO SCH (07:11)
[2017-12-14] MEDS: K and/or MAG REPLACEMENT MC SCH (07:12)
[2017-12-14] MEDS ORDERED: METO25TA6 PO (09:30)
[2017-12-14] MEDS ORDERED: ASPI-41 PO (09:30)
[2017-12-14] MEDS ORDERED: HYDR-3972 PO (09:30)
[2017-12-14] MEDS ORDERED: PRAV40TA3 PO (09:30)
[2017-12-14] MEDS ORDERED: COL100C PO (09:30)
[2017-12-14 11:00] VITALS: BP 127/74
[2017-12-14 12:17] LABS: ALBUMIN 3.5 G/DL (3.4-5.0); ANION GAP 8 (8-16); BLOOD UREA NITROGEN 25 MG/DL (7-18); BUN/CREATININE RATIO 21.4 (5.4-32.0); CALCIUM 8.7 MG/DL (8.5-10.1); CHLORIDE 102 MMOL/L (99-107); CREATININE 1.17 MG/DL (0.60-1.10); GLUCOSE 93 MG/DL (70-104); POTASSIUM 4.9 MMOL/L (3.5-5.1); SODIUM 139 MMOL/L (135-145); TOTAL CARBON DIOXIDE 29.3 MMOL/L (24-32); eGFR 62 ML/MIN
== END 2017-12-14 13:50 | disposition home or self-care (01) | DRG 233 ==
LOC: ER 09:15 → ED HOLD 11:23 → OBSVTOIN 11:23 → EDBEDREQ 13:23 → PCU 3S 14:30 → ICU 2S 12-10 14:28 → PCU 3S 12-13 23:58
PROVIDERS: ADMIT Hospitalist; ATTEND Thoracic Surgery (Cardiothoracic Vascular Surgery)
PROC: C2261ZZ Tomographic (Tomo) Nuclear Medicine Imaging of Right and Left Heart using Technetium 99m (Tc-99m) (ICD-10-PCS; 2017-12-07)
PROC: 4A023N8 Measurement of Cardiac Sampling and Pressure, Bilateral, Percutaneous Approach (ICD-10-PCS; 2017-12-08)
PROC: B3101ZZ Fluoroscopy of Thoracic Aorta using Low Osmolar Contrast (ICD-10-PCS; 2017-12-08)
PROC: B2111ZZ Fluoroscopy of Multiple Coronary Arteries using Low Osmolar Contrast (ICD-10-PCS; 2017-12-08)
PROC: B2151ZZ Fluoroscopy of Left Heart using Low Osmolar Contrast (ICD-10-PCS; 2017-12-08)
PROC: 021209W Bypass Coronary Artery, Three Arteries from Aorta with Autologous Venous Tissue, Open Approach (ICD-10-PCS; 2017-12-10)
PROC: 06BQ4ZZ Excision of Left Saphenous Vein, Percutaneous Endoscopic Approach (ICD-10-PCS; 2017-12-10)
PROC: B24BZZ4 Ultrasonography of Heart with Aorta, Transesophageal (ICD-10-PCS; 2017-12-10)
PROC: 5A1221Z Performance of Cardiac Output, Continuous (ICD-10-PCS; 2017-12-10)
PROC: 05HM33Z Insertion of Infusion Device into Right Internal Jugular Vein, Percutaneous Approach (ICD-10-PCS; 2017-12-10)
PROC: 02HQ32Z Insertion of Monitoring Device into Right Pulmonary Artery, Percutaneous Approach (ICD-10-PCS; 2017-12-10)
PROC: 4A133B3 Monitoring of Arterial Pressure, Pulmonary, Percutaneous Approach (ICD-10-PCS; 2017-12-10)
PROC: 4A1239Z Monitoring of Cardiac Output, Percutaneous Approach (ICD-10-PCS; 2017-12-10)
PROC: 02100Z9 Bypass Coronary Artery, One Artery from Left Internal Mammary, Open Approach (ICD-10-PCS; principal; 2017-12-10 13:07)
PROC: 30233N1 Transfusion of Nonautologous Red Blood Cells into Peripheral Vein, Percutaneous Approach (ICD-10-PCS; 2017-12-11)
DX: I25.110 Atherosclerotic heart disease of native coronary artery with unstable angina pectoris (principal); I50.33 Acute on chronic diastolic (congestive) heart failure; N17.9 Acute kidney failure, unspecified; I31.0 Chronic adhesive pericarditis; I42.0 Dilated cardiomyopathy; I50.9 Heart failure, unspecified; D64.9 Anemia, unspecified; I65.22 Occlusion and stenosis of left carotid artery; N18.2 Chronic kidney disease, stage 2 (mild); I25.5 Ischemic cardiomyopathy; E78.5 Hyperlipidemia, unspecified; M10.9 Gout, unspecified; E86.0 Dehydration; R79.89 Other specified abnormal findings of blood chemistry; F12.90 Cannabis use, unspecified, uncomplicated; I25.2 Old myocardial infarction; Z79.899 Other long term (current) drug therapy; Z88.0 Allergy status to penicillin; Z87.891 Personal history of nicotine dependence
CPT/HCPCS: 0232T; 93306; 93312; 93325; 93461; 36415; 36600; 71045; 71046; 78452; 80048; 80053; 80061; 82330; 82435; 82550; 82803; 82947; 82948; 83036; 83735; 84100; 84132; 84295; 84484; 85014; 85018; 85025; 85027; 85347; 85384; 85610; 85730; 86885; 86900; 86901; 86920; 87070; 93005; 93017; 93880; 93971; 94002; 94150; 94668; 94760; 97116; 97162; 97530; 99152; 99153; A4620; A6213; A6255; A6257; A6258; A6402; A6449; A7000; A7048; A9500; C1751; C1769; J0280; J0690; J1644; J1815; J1885; J1940; J2001; J2060; J2250; J2270; J2370; J2405; J2440; J2704; J2785; J2930; J3010; J3370; J3475; J3480; J3490; J7030; J7060; J7120; P9016; P9045; P9047; Q9967

== ENCOUNTER 2018-01-07 18:52 | Emergency (ER) | payer MEDICARE, OTHER ==
[~2018-01-07] VITALS: Ht 180.3 cm; Wt 75.0 kg
[~2018-01-07 18:52] MED LIST changes: +ASPI-41 PO; +COL100C PO; -FURO80TA87 PO; +HYDR-3972 PO; -METH4TAB81 PO; +METO25TA6 PO; +PRAV40TA3 PO
[2018-01-07 21:20] VITALS: BP 134/74
[2018-01-07] MEDS ORDERED: colchicine 0.6mg tablet PO ONE (21:20)
[2018-01-07] MEDS ORDERED: ketorolac trometh inj. 60 MG/2 ML VIAL IM ONE (21:20)
[2018-01-07] MEDS ORDERED: INDO50CA PO (21:59)
[2018-01-07] MEDS ORDERED: COLC0.6T69 PO (22:01)
== END 2018-01-07 22:30 | disposition home or self-care (01) ==
LOC: ER 18:53
DX: M10.9 Gout, unspecified (principal); I25.10 Atherosclerotic heart disease of native coronary artery without angina pectoris; I50.9 Heart failure, unspecified; I25.2 Old myocardial infarction; F12.10 Cannabis abuse, uncomplicated; Z88.0 Allergy status to penicillin; Z95.1 Presence of aortocoronary bypass graft; Z79.82 Long term (current) use of aspirin; Z79.899 Other long term (current) drug therapy
CPT/HCPCS: 96372; 99283; J1885

== ENCOUNTER 2018-05-06 06:18 | Inpatient (IN) | payer MEDICARE, OTHER ==
[~2018-05-06] VITALS: Ht 180.3 cm; Wt 85.9 kg
[~2018-05-06 06:18] MED LIST changes: +INDO50CA14 PO
[2018-05-06 06:46] LABS: BASOPHILS # (AUTO) 0.1 X10'3 (0-0.2); BASOPHILS % (AUTO) 0.5 % (0-1); EOSINOPHILS # (AUTO) 0.7 X10'3 (0-0.9); HEMATOCRIT 43.4 % (42.0-52.0); HEMOGLOBIN 13.9 g/dl (14.0-17.9); LYMPHOCYTES # (AUTO) 2.2 X10'3 (1.1-4.8); LYMPHOCYTES % (AUTO) 19.5 % (21-51); MEAN CORPUSCULAR HEMOGLOBIN 25.6 PG (27.0-31.0); MEAN CORPUSCULAR HGB CONC 32.1 % (33.0-36.5); MEAN CORPUSCULAR VOLUME 79.5 FL (78-98); MEAN PLATELET VOLUME 8.4 FL (7.4-10.4); MONOCYTES # (AUTO) 0.7 X10'3 (0-0.9); MONOCYTES % (AUTO) 6.3 % (2-12); NEUTROPHILS # (AUTO) 7.6 X10'3 (1.8-7.7); NEUTROPHILS % (AUTO) 67.7 % (42-75); PLATELET COUNT 315 X10'3 (140-440); RED BLOOD COUNT 5.45 X10'6 (4.70-6.10); RED CELL DISTRIBUTION WIDTH 18.6 % (11.5-14.5); WHITE BLOOD COUNT 11.3 X10'3 (4.5-11.0)
[2018-05-06 06:56] LABS: PARTIAL THROMBOPLASTIN TIME 26 SECONDS (22-32); PROTHROMBIN TIME 10.7 SECONDS (9.0-12.0)
[2018-05-06 07:00] LABS: ALANINE AMINOTRANSFERASE 22 U/L (12-78); ALBUMIN 4.3 G/DL (3.4-5.0); ALBUMIN/GLOBULIN RATIO 0.9 (1.1-1.5); ALKALINE PHOSPHATASE 154 IU/L (46-116); ANION GAP 8 (8-16); ASPARTATE AMINO TRANSFERASE 24 U/L (10-37); BILIRUBIN,TOTAL 0.5 MG/DL (0.1-1.0); BLOOD UREA NITROGEN 17 MG/DL (7-18); CALCIUM 9.3 MG/DL (8.5-10.1); CHLORIDE 100 MMOL/L (99-107); CREATININE 1.13 MG/DL (0.60-1.10); GLUCOSE 95 MG/DL (70-104); SODIUM 137 MMOL/L (135-145); TOTAL CARBON DIOXIDE 29.2 MMOL/L (24-32); eGFR 64 ML/MIN
[2018-05-06] MEDS ORDERED: nitroGLYCERIN 0.4mg/hour patch TD ONE (07:45)
[2018-05-06] MEDS ORDERED: aspirin 81mg tab.chew PO ONE (07:45)
[2018-05-06] MEDS ORDERED: acetaminophen 325mg tablet PO PRN (08:25)
[2018-05-06] MEDS ORDERED: morphine 2 MG/ML inj. syringe IV PRN ×2 (08:25)
[2018-05-06] MEDS ORDERED: mag hydrox/Alum hydrox/simeth 30ml oral suspension PO PRN (08:25)
[2018-05-06] MEDS ORDERED: ondansetron/PF 4mg/2ml inj IV PRN (08:25)
[2018-05-06] MEDS ORDERED: magnesium hydroxide 30ml (MOM) UD suspension PO PRN (08:25)
[2018-05-06] MEDS ORDERED: nitroGLYCERIN 1gm ointment UD TP ONE (08:30)
[2018-05-06] MEDS: furosemide 40mg/4ml inj IV SCH ×2 (08:51→20:11)
[2018-05-06 11:00] VITALS: BP 139/88
[2018-05-06 11:12] VITALS: BP 142/90
[2018-05-06 16:00] VITALS: BP 148/85
[2018-05-06 18:00] VITALS: BP 138/98
[2018-05-06] MEDS: metoprolol tartrate 12.5mg (1/2 tablet) PO SCH (20:08)
[2018-05-06] MEDS ORDERED: atorvastatin 10mg tablet PO SCH (21:00)
[2018-05-06 22:00] VITALS: BP 134/87
[2018-05-07 02:00] VITALS: BP 126/83
[2018-05-07 05:52] LABS: BASOPHILS % (AUTO) 0.5 % (0-1); EOSINOPHILS # (AUTO) 0.4 X10'3 (0-0.9); EOSINOPHILS % (AUTO) 4.8 % (0-6); HEMATOCRIT 44.7 % (42.0-52.0); HEMOGLOBIN 14.3 g/dl (14.0-17.9); LYMPHOCYTES # (AUTO) 1.8 X10'3 (1.1-4.8); LYMPHOCYTES % (AUTO) 20.8 % (21-51); MEAN CORPUSCULAR HEMOGLOBIN 25.1 PG (27.0-31.0); MEAN CORPUSCULAR HGB CONC 31.9 % (33.0-36.5); MEAN CORPUSCULAR VOLUME 78.5 FL (78-98); MEAN PLATELET VOLUME 9.6 FL (7.4-10.4); MONOCYTES # (AUTO) 0.6 X10'3 (0-0.9); MONOCYTES % (AUTO) 7.4 % (2-12); NEUTROPHILS # (AUTO) 5.7 X10'3 (1.8-7.7); NEUTROPHILS % (AUTO) 66.5 % (42-75); PLATELET COUNT 263 X10'3 (140-440); RED BLOOD COUNT 5.69 X10'6 (4.70-6.10); WHITE BLOOD COUNT 8.6 X10'3 (4.5-11.0)
[2018-05-07 06:00] VITALS: BP 125/93
[2018-05-07 06:14] LABS: ALBUMIN 4.1 G/DL (3.4-5.0); ANION GAP 10 (8-16); BLOOD UREA NITROGEN 19 MG/DL (7-18); BUN/CREATININE RATIO 16.2 (5.4-32.0); CALCIUM 9.1 MG/DL (8.5-10.1); CHLORIDE 97 MMOL/L (99-107); CHOL/HDL RATIO 4.6 (0.00-4.99); CHOLESTEROL 216 MG/DL (0-200); CREATININE 1.17 MG/DL (0.60-1.10); GLUCOSE 97 MG/DL (70-104); HDL CHOLESTEROL 47 MG/DL (35-60); LDL CHOLESTEROL 138 MG/DL (50-100); SODIUM 137 MMOL/L (135-145); TOTAL CARBON DIOXIDE 29.8 MMOL/L (24-32); TRIGLYCERIDES 195 MG/DL (20-135); eGFR 62 ML/MIN
[2018-05-07] MEDS ORDERED: aspirin 325mg tablet, delayed-release (Ecotrin) PO SCH (08:00)
[2018-05-07] MEDS ORDERED: enoxaparin 40mg/0.4ml syringe SUBCUT SCH (08:00)
[2018-05-07] MEDS: furosemide 40mg/4ml inj IV SCH (08:05)
[2018-05-07] MEDS: metoprolol tartrate 12.5mg (1/2 tablet) PO SCH (08:05)
[2018-05-07] MEDS ORDERED: FURO-150 PO (08:34)
== END 2018-05-07 10:27 | disposition home or self-care (01) | DRG 292 ==
LOC: ER 06:18 → PCU 3S 08:24
PROVIDERS: ADMIT Internal Medicine; ATTEND Internal Medicine
DX: I50.23 Acute on chronic systolic (congestive) heart failure (principal); I24.9 Acute ischemic heart disease, unspecified; I25.10 Atherosclerotic heart disease of native coronary artery without angina pectoris; F12.90 Cannabis use, unspecified, uncomplicated; M10.9 Gout, unspecified; I48.0 Paroxysmal atrial fibrillation; E78.5 Hyperlipidemia, unspecified; I25.2 Old myocardial infarction; Z95.1 Presence of aortocoronary bypass graft; Z88.0 Allergy status to penicillin; Z91.018 Allergy to other foods; Z79.899 Other long term (current) drug therapy; Z79.82 Long term (current) use of aspirin; Z87.891 Personal history of nicotine dependence
CPT/HCPCS: 36415; 71046; 80048; 80053; 80061; 83880; 84484; 85025; 85610; 85730; 87070; 93005; 93306; 99285; J1650; J1940

== ENCOUNTER 2018-07-16 07:22 | Inpatient (IN) | payer MEDICARE, OTHER ==
[2018-07-14 12:09] LABS: BASOPHILS # (AUTO) 0.1 X10'3 (0-0.2); BASOPHILS % (AUTO) 0.8 % (0-1); CLARITY,URINE CLEAR (Clear); COLOR,URINE YELLOW (Yellow); EOSINOPHILS # (AUTO) 0.5 X10'3 (0-0.9); EOSINOPHILS % (AUTO) 7.1 % (0-6); GLUCOSE, URINE NEGATIVE (Neg); KETONES,URINE NEGATIVE (Neg); LEUKOCYTE ESTERASE ,URINE NEGATIVE (Neg); LYMPHOCYTES # (AUTO) 2.1 X10'3 (1.1-4.8); LYMPHOCYTES % (AUTO) 28.6 % (21-51); MEAN CORPUSCULAR HEMOGLOBIN 26.3 PG (27.0-31.0); MEAN CORPUSCULAR HGB CONC 31.6 % (33.0-36.5); MEAN CORPUSCULAR VOLUME 83.2 FL (78-98); MEAN PLATELET VOLUME 8.8 FL (7.4-10.4); MONOCYTES # (AUTO) 0.6 X10'3 (0-0.9); MONOCYTES % (AUTO) 7.8 % (2-12); NEUTROPHILS # (AUTO) 4.1 X10'3 (1.8-7.7); NEUTROPHILS % (AUTO) 55.7 % (42-75); NITRITES, URINE NEGATIVE (Neg); OCCULT BLOOD,URINE NEGATIVE (Neg); PH,URINE 5.5 (4.8-8.0); PRE OP HEMATOCRIT 41.5 % (42.0-52.0); PRE OP HEMOGLOBIN 13.1 g/dL (14.0-17.9); PRE OP PLATELET COUNT 239 X10'3 (140-440); PROTEIN,URINE NEGATIVE (Neg); RED BLOOD COUNT 4.99 X10'6 (4.70-6.10); RED CELL DISTRIBUTION WIDTH 21.1 % (11.5-14.5); UROBILINOGEN,URINE 0.2 E.U/dL (0.2-1.0)
[2018-07-14 12:15] LABS: UA COLLECTION TYPE VOIDED
[2018-07-14 12:22] LABS: PRE OP INR 1.1 INR
[2018-07-14 12:24] LABS: ALBUMIN 3.8 G/DL (3.4-5.0); ALKALINE PHOSPHATASE 129 IU/L (46-116); BLOOD UREA NITROGEN 11 MG/DL (7-18); BUN/CREATININE RATIO 9.2 (5.4-32.0); CHLORIDE 102 MMOL/L (99-107); CREATININE 1.19 MG/DL (0.60-1.10); PRE OP ALT 14 U/L (30-65); PRE OP ANION GAP 9 (8-16); PRE OP AST 15 U/L (10-37); PRE OP BILIRUB, TOTAL 0.5 MG/DL (0.0-1.0); PRE OP GLUCOSE 88 MG/DL (70-104); PRE OP POTASSIUM 4.7 MMOL/L (3.4-5.1); PRE OP SODIUM 140 MMOL/L (135-145); TOTAL CARBON DIOXIDE 29.3 MMOL/L (24-32); TOTAL PROTEIN 7.8 G/DL (6.4-8.2); eGFR 60 ML/MIN
[2018-07-14 12:43] LABS: ANISOCYTOSIS 3+; PLATELET ESTIMATE NORMAL
[2018-07-16] VITALS (20 sets, daily range): BP systolic 114–181; BP diastolic 62–94
[~2018-07-16] VITALS: Ht 180.3 cm; Wt 84.0 kg
[~2018-07-16 07:22] MED LIST changes: -ASPI-41 PO; +ATOR40TA72 PO; +CLINDAmcin 900mg/NS 50ml IVPB 50 ML IV ONE; -COL100C PO; -COLC0.6T69 PO; +DOCUMENT DATE & TIME OF BETA-BLOCKER PO ONE; -HYDR-3972 PO; -INDO50CA14 PO; -PRAV40TA3 PO; +famotidine 20mg tablet PO ONE; +ringers solution, lacted 1,000 ML IV SCH; +vancomycin inj 1,500 MG in normal saline 300ml IV soln IV ONE
[2018-07-16] MEDS ORDERED: nitroGLYCERIN-Tridil 50MG/D5W 250 ML IV PRN ×2 (07:56→14:24)
[2018-07-16] MEDS ORDERED: phenylephrine inj 10 MG in normal saline 250ml IV soln 250 ML IV PRN ×2 (07:56→14:24)
[2018-07-16] MEDS ORDERED: LIDOcaine 1% 30ml preserv. free vial ONE (10:19)
[2018-07-16] MEDS ORDERED: heparin 10,000 units/1 ML INJ ONE (10:19)
[2018-07-16] MEDS ORDERED: fentaNYL /PF 50mcg/ml 5ml ampule ONE (10:25)
[2018-07-16] MEDS ORDERED: LIDOcaine 1% (10mg/ml) 2ml vial ONE (10:26)
[2018-07-16] MEDS ORDERED: nitroGLYCERIN in D5W 50mg/250ml (Tridil) infusion IV ONE (12:16)
[2018-07-16] MEDS ORDERED: phenylephrine 10mg/ml inj. ONE (12:16)
[2018-07-16] MEDS ORDERED: sevoflurane 250ml liquid IH ONE (12:16)
[2018-07-16] MEDS ORDERED: propofol inj 20 ML IV ONE (13:34)
[2018-07-16] MEDS ORDERED: LIDOcaine 2% (20mg/ml) 5ml vial ONE (13:34)
[2018-07-16] MEDS ORDERED: neostigmine methylsulfate 1 MG/ML 10ml vial ONE (13:34)
[2018-07-16] MEDS ORDERED: rocuronium 10mg/ml inj IV ONE (13:34)
[2018-07-16] MEDS ORDERED: albuterol 60 PUFF/8GM Inhaler IH ONE (13:34)
[2018-07-16] MEDS ORDERED: glycopyrrolate 0.2mg/ml inj ONE (13:34)
[2018-07-16] MEDS ORDERED: ondansetron/PF 4mg/2ml inj ONE (13:34)
[2018-07-16] MEDS ORDERED: dexamethasone sod phosphate 4mg/ml inj. ONE (13:34)
[2018-07-16] MEDS ORDERED: ePHEDrine 50MG/ML INJ. ONE (13:34)
[2018-07-16] MEDS ORDERED: ringers solution, lacted 1,000 ML IV SCH (14:24)
[2018-07-16] MEDS ORDERED: ondansetron/PF 4mg/2ml inj IV PRN (14:25)
[2018-07-16] MEDS ORDERED: labetalol 5mg/ml 20ml inj. IV ONE (14:37)
[2018-07-16] MEDS: morphine 4 MG/ML inj SYRINge IV PRN ×3 (15:02→15:34)
[2018-07-16] MEDS ORDERED: morphine 2 MG/ML inj. syringe IV PRN (15:15)
[2018-07-16] MEDS ORDERED: morphine 4 MG/ML inj SYRINge IV PRN (15:15)
[2018-07-16] MEDS: ondansetron/PF 4mg/2ml inj IV PRN (18:41)
[2018-07-16] MEDS: metoprolol tartrate 25mg tablet PO SCH (20:30)
[2018-07-17] VITALS (22 sets, daily range): BP systolic 131–184; BP diastolic 64–115
[2018-07-17] MEDS: ondansetron/PF 4mg/2ml inj IV PRN (01:39)
[2018-07-17 03:31] LABS: BASOPHILS % (AUTO) 0.1 % (0-1); EOSINOPHILS # (AUTO) 0.1 X10'3 (0-0.9); EOSINOPHILS % (AUTO) 1.2 % (0-6); HEMATOCRIT 38.2 % (42.0-52.0); HEMOGLOBIN 12.3 g/dl (14.0-17.9); LYMPHOCYTES # (AUTO) 0.8 X10'3 (1.1-4.8); LYMPHOCYTES % (AUTO) 7.8 % (21-51); MEAN CORPUSCULAR HEMOGLOBIN 26.8 PG (27.0-31.0); MEAN CORPUSCULAR HGB CONC 32.1 % (33.0-36.5); MEAN CORPUSCULAR VOLUME 83.4 FL (78-98); MEAN PLATELET VOLUME 9.2 FL (7.4-10.4); MONOCYTES # (AUTO) 0.4 X10'3 (0-0.9); MONOCYTES % (AUTO) 4.4 % (2-12); NEUTROPHILS # (AUTO) 8.8 X10'3 (1.8-7.7); NEUTROPHILS % (AUTO) 86.5 % (42-75); PLATELET COUNT 236 X10'3 (140-440); RED BLOOD COUNT 4.57 X10'6 (4.70-6.10); RED CELL DISTRIBUTION WIDTH 20.2 % (11.5-14.5); WHITE BLOOD COUNT 10.2 X10'3 (4.5-11.0)
[2018-07-17 03:46] LABS: ALANINE AMINOTRANSFERASE 13 U/L (12-78); ALBUMIN 3.5 G/DL (3.4-5.0); ALKALINE PHOSPHATASE 116 IU/L (46-116); ANION GAP 9 (8-16); ASPARTATE AMINO TRANSFERASE 15 U/L (10-37); BILIRUBIN,TOTAL 0.8 MG/DL (0.1-1.0); BLOOD UREA NITROGEN 15 MG/DL (7-18); BUN/CREATININE RATIO 13.2 (5.4-32.0); CALCIUM 8.7 MG/DL (8.5-10.1); CHLORIDE 100 MMOL/L (99-107); CREATININE 1.14 MG/DL (0.60-1.10); GLUCOSE 125 MG/DL (70-104); POTASSIUM 4.4 MMOL/L (3.5-5.1); SODIUM 134 MMOL/L (135-145); TOTAL CARBON DIOXIDE 25.3 MMOL/L (24-32); TOTAL PROTEIN 7.1 G/DL (6.4-8.2); eGFR 64 ML/MIN
[2018-07-17] MEDS ORDERED: heparin, porcine 5000 units/ml vial IV ONE (07:40)
[2018-07-17] MEDS: atorvastatin 20mg tablet PO SCH (08:29)
[2018-07-17] MEDS: metoprolol tartrate 25mg tablet PO SCH (08:30)
[2018-07-17] MEDS: acetaminophen 325mg tablet PO PRN ×2 (14:24→21:03)
[2018-07-17] MEDS ORDERED: metoprolol tartrate 25mg tablet PO ONE (14:55)
[2018-07-17] MEDS: enoxaparin 80mg/0.8ml syringe SUBCUT SCH (20:01)
[2018-07-18] VITALS: BP 134/75
[2018-07-18] MEDS: metoprolol tartrate 25mg tablet PO SCH ×2 (00:32→07:36)
[2018-07-18] MEDS: atorvastatin 20mg tablet PO SCH (07:35)
[2018-07-18] MEDS: enoxaparin 80mg/0.8ml syringe SUBCUT SCH (07:36)
[2018-07-18] MEDS: acetaminophen 325mg tablet PO PRN (07:37)
[2018-07-18 07:48] VITALS: BP 148/88
[2018-07-18 11:00] VITALS: BP 151/88
== END 2018-07-18 13:23 | disposition home or self-care (01) | DRG 38 ==
LOC: PAS IN 07:22 → EDSTATUS 10:45 → CICU 2S 15:45 → SUR 3N 07-17 19:30
PROVIDERS: ADMIT Surgery; ATTEND Surgery
PROC: 03CL0ZZ Extirpation of Matter from Left Internal Carotid Artery, Open Approach (ICD-10-PCS; principal; 2018-07-16 12:16)
DX: I65.22 Occlusion and stenosis of left carotid artery (principal); I13.0 Hypertensive heart and chronic kidney disease with heart failure and stage 1 through stage 4 chronic kidney disease, or unspecified chronic kidney disease; I50.22 Chronic systolic (congestive) heart failure; E78.5 Hyperlipidemia, unspecified; F12.90 Cannabis use, unspecified, uncomplicated; I25.10 Atherosclerotic heart disease of native coronary artery without angina pectoris; I34.0 Nonrheumatic mitral (valve) insufficiency; I67.9 Cerebrovascular disease, unspecified; J45.909 Unspecified asthma, uncomplicated; M10.9 Gout, unspecified; N18.9 Chronic kidney disease, unspecified; Z95.1 Presence of aortocoronary bypass graft; Z88.0 Allergy status to penicillin; Z91.018 Allergy to other foods; I25.2 Old myocardial infarction; Z79.899 Other long term (current) drug therapy; Z79.82 Long term (current) use of aspirin; Z87.891 Personal history of nicotine dependence; Z86.19 Personal history of other infectious and parasitic diseases; Z82.49 Family history of ischemic heart disease and other diseases of the circulatory system
CPT/HCPCS: 36415; 71046; 80053; 81003; 85025; 85610; 85730; 86885; 86900; 86901; 87070; 88305; 93005; 93880; 95813; 95816; A6258; A7000; G0378; J1100; J1644; J1650; J2001; J2270; J2370; J2405; J2704; J2710; J3010; J3370; J3490; J7030; J7120

== ENCOUNTER 2018-07-21 06:41 | Emergency (ER) | payer MEDICARE, OTHER ==
[~2018-07-21] VITALS: Ht 180.3 cm; Wt 84.1 kg
[~2018-07-21 06:41] MED LIST changes: -CLINDAmcin 900mg/NS 50ml IVPB 50 ML IV ONE; -DOCUMENT DATE & TIME OF BETA-BLOCKER PO ONE; -famotidine 20mg tablet PO ONE; -ringers solution, lacted 1,000 ML IV SCH; -vancomycin inj 1,500 MG in normal saline 300ml IV soln IV ONE
[2018-07-21 06:49] VITALS: BP 157/103
[2018-07-21] MEDS ORDERED: normal saline 1000ML IV soln IVB ONE (06:55)
[2018-07-21 07:36] LABS: BASOPHILS % (AUTO) 0.4 % (0-1); EOSINOPHILS # (AUTO) 0.4 X10'3 (0-0.9); EOSINOPHILS % (AUTO) 5.4 % (0-6); HEMATOCRIT 42.4 % (42.0-52.0); HEMOGLOBIN 13.8 g/dl (14.0-17.9); LYMPHOCYTES # (AUTO) 1.1 X10'3 (1.1-4.8); LYMPHOCYTES % (AUTO) 13.3 % (21-51); MEAN CORPUSCULAR HEMOGLOBIN 27.1 PG (27.0-31.0); MEAN CORPUSCULAR HGB CONC 32.5 % (33.0-36.5); MEAN CORPUSCULAR VOLUME 83.3 FL (78-98); MEAN PLATELET VOLUME 8.9 FL (7.4-10.4); MONOCYTES # (AUTO) 0.4 X10'3 (0-0.9); MONOCYTES % (AUTO) 5.4 % (2-12); NEUTROPHILS # (AUTO) 6.2 X10'3 (1.8-7.7); NEUTROPHILS % (AUTO) 75.5 % (42-75); PLATELET COUNT 221 X10'3 (140-440); RED BLOOD COUNT 5.08 X10'6 (4.70-6.10); RED CELL DISTRIBUTION WIDTH 20.5 % (11.5-14.5); WHITE BLOOD COUNT 8.2 X10'3 (4.5-11.0)
[2018-07-21 07:42] LABS: ALANINE AMINOTRANSFERASE 16 U/L (12-78); ALBUMIN 3.6 G/DL (3.4-5.0); ALBUMIN/GLOBULIN RATIO 0.9 (1.1-1.5); ALKALINE PHOSPHATASE 108 IU/L (46-116); ANION GAP 12 (8-16); ASPARTATE AMINO TRANSFERASE 18 U/L (10-37); BILIRUBIN,TOTAL 0.4 MG/DL (0.1-1.0); BLOOD UREA NITROGEN 17 MG/DL (7-18); BUN/CREATININE RATIO 13.7 (5.4-32.0); CALCIUM 8.7 MG/DL (8.5-10.1); CHLORIDE 102 MMOL/L (99-107); CREATININE 1.24 MG/DL (0.60-1.10); GLUCOSE 108 MG/DL (70-104); POTASSIUM 3.3 MMOL/L (3.5-5.1); SODIUM 141 MMOL/L (135-145); TOTAL CARBON DIOXIDE 27.5 MMOL/L (24-32); TOTAL PROTEIN 7.5 G/DL (6.4-8.2); eGFR 58 ML/MIN
[2018-07-21 07:46] LABS: ANISOCYTOSIS 3+; PLATELET ESTIMATE NORMAL
[2018-07-21 07:47] LABS: SCHISTOCYTES FEW
[2018-07-21 08:55] LABS: CLARITY,URINE CLEAR (Clear); COLOR,URINE STRAW (Yellow); GLUCOSE, URINE NEGATIVE (Neg); KETONES,URINE NEGATIVE (Neg); LEUKOCYTE ESTERASE ,URINE NEGATIVE (Neg); NITRITES, URINE NEGATIVE (Neg); OCCULT BLOOD,URINE TRACE-INTACT (Neg); PROTEIN,URINE 30 mg/dl (Neg); UROBILINOGEN,URINE 0.2 E.U/dL (0.2-1.0)
[2018-07-21 08:57] LABS: UA COLLECTION TYPE VOIDED
[2018-07-21 09:03] LABS: BACTERIA,URINE NONE SEEN /HPF (Neg); RBC,URINE NONE SEEN /HPF (0-2); SQUAMOUS EPITHELIAL CELL,UR NONE SEEN /LPF (FEW); WBC,URINE NONE SEEN /HPF (0-4)
== END 2018-07-21 09:32 | disposition left against medical advice (07) ==
LOC: ER 06:42
DX: R41.0 Disorientation, unspecified (principal); I25.10 Atherosclerotic heart disease of native coronary artery without angina pectoris; I50.9 Heart failure, unspecified; I25.2 Old myocardial infarction; M10.9 Gout, unspecified; F12.90 Cannabis use, unspecified, uncomplicated; Z98.61 Coronary angioplasty status; Z88.0 Allergy status to penicillin; Z79.899 Other long term (current) drug therapy
CPT/HCPCS: 36415; 70450; 71045; 80053; 81001; 85025; 93005; 96360; 99284; J7030

== ENCOUNTER 2018-07-21 12:34 | Emergency (ER) | payer MEDICARE, OTHER ==
[~2018-07-21] VITALS: Ht 170.2 cm; Wt 86.0 kg
[~2018-07-21 12:34] MED LIST changes: +0.9 % SODIUM CHLORIDE 10 ML VIAL ONE; +etomidate 2mg/ml inj. ONE; +rocuronium 10mg/ml inj IV ONE
[2018-07-21 12:54] LABS: BASOPHILS % (AUTO) 0.3 % (0-1); EOSINOPHILS # (AUTO) 0.4 X10'3 (0-0.9); EOSINOPHILS % (AUTO) 2.9 % (0-6); HEMATOCRIT 46.3 % (42.0-52.0); HEMOGLOBIN 14.9 g/dl (14.0-17.9); LYMPHOCYTES # (AUTO) 2.8 X10'3 (1.1-4.8); LYMPHOCYTES % (AUTO) 21.4 % (21-51); MEAN CORPUSCULAR HEMOGLOBIN 26.9 PG (27.0-31.0); MEAN CORPUSCULAR HGB CONC 32.2 % (33.0-36.5); MEAN CORPUSCULAR VOLUME 83.7 FL (78-98); MEAN PLATELET VOLUME 8.5 FL (7.4-10.4); MONOCYTES % (AUTO) 7.4 % (2-12); PLATELET COUNT 309 X10'3 (140-440); RED BLOOD COUNT 5.54 X10'6 (4.70-6.10); RED CELL DISTRIBUTION WIDTH 20.4 % (11.5-14.5); WHITE BLOOD COUNT 13.2 X10'3 (4.5-11.0)
[2018-07-21] MEDS ORDERED: LORazepam 2 mg/ml vial ONE (13:07)
[2018-07-21] MEDS ORDERED: levetiracetam inj 1,000 MG in normal saline 100ml IV soln 90 ML IV ONE (13:10)
[2018-07-21] MEDS ORDERED: LORazepam 2 mg/ml vial IV ONE (13:10)
[2018-07-21 13:13] LABS: ANISOCYTOSIS 2+; PLATELET ESTIMATE NORMAL
[2018-07-21 13:15] LABS: PARTIAL THROMBOPLASTIN TIME 24 SECONDS (22-32); PROTHROMBIN TIME 10.4 SECONDS (9.0-12.0)
[2018-07-21] MEDS: labetalol 20mg/4ml (5mg/ml) syringe IV ONE ×2 (13:24→13:50)
[2018-07-21 13:25] LABS: ALANINE AMINOTRANSFERASE 18 U/L (12-78); ALBUMIN 3.9 G/DL (3.4-5.0); ALBUMIN/GLOBULIN RATIO 0.9 (1.1-1.5); ALKALINE PHOSPHATASE 132 IU/L (46-116); ANION GAP 15 (8-16); ASPARTATE AMINO TRANSFERASE 24 U/L (10-37); BILIRUBIN,TOTAL 0.6 MG/DL (0.1-1.0); BLOOD UREA NITROGEN 15 MG/DL (7-18); BUN/CREATININE RATIO 12.5 (5.4-32.0); CHLORIDE 100 MMOL/L (99-107); GLUCOSE 127 MG/DL (70-104); POTASSIUM 3.5 MMOL/L (3.5-5.1); SODIUM 139 MMOL/L (135-145); TOTAL CARBON DIOXIDE 24.5 MMOL/L (24-32); TOTAL PROTEIN 8.2 G/DL (6.4-8.2); eGFR 60 ML/MIN
[2018-07-21] MEDS ORDERED: fentaNYL/PF 50MCG/1 ML 2ML syringe IV ONE (13:25)
[2018-07-21] MEDS ORDERED: propofol 1000mg/100ml bottle 100 ML IV ONE (13:29)
[2018-07-21] MEDS ORDERED: propofol 1000mg/100ml bottle 100 ML IV PRN (13:32)
[2018-07-21 13:34] LABS: ETHANOL < 0.010 GM/DL (0.0-0.010); MAGNESIUM 2.1 MG/DL (1.5-2.4)
[2018-07-21 13:36] LABS: ACETAMINOPHEN < 2.0 UG/ML (10-30)
[2018-07-21] MEDS ORDERED: rocuronium 10mg/ml inj IV ONE (13:45)
[2018-07-21] MEDS ORDERED: etomidate 2mg/ml inj. IV ONE (13:45)
[2018-07-21 14:26] VITALS: BP 127/85
== END 2018-07-21 14:26 | disposition short-term general hospital (02) ==
LOC: ER 12:35
DX: S06.360A Traumatic hemorrhage of cerebrum, unspecified, without loss of consciousness, initial encounter (principal); S02.19XA Other fracture of base of skull, initial encounter for closed fracture; R56.9 Unspecified convulsions; I25.10 Atherosclerotic heart disease of native coronary artery without angina pectoris; I50.9 Heart failure, unspecified; I25.2 Old myocardial infarction; M10.9 Gout, unspecified; F12.90 Cannabis use, unspecified, uncomplicated; Z86.73 Personal history of transient ischemic attack (TIA), and cerebral infarction without residual deficits; Z88.0 Allergy status to penicillin; Z79.899 Other long term (current) drug therapy; Z98.890 Other specified postprocedural states; X58.XXXA Exposure to other specified factors, initial encounter; Y93.89 Activity, other specified; Y92.098 Other place in other non-institutional residence as the place of occurrence of the external cause; Y99.8 Other external cause status
CPT/HCPCS: 31500; 36415; 70450; 71045; 80053; 80320; 80329; 83735; 84443; 84484; 85025; 85610; 85730; 93005; 96365; 96375; 99291; J1953; J2060; J2704; J3010; 94002; J3490; J7030

== ENCOUNTER 2018-08-27 11:19 | Inpatient (IN) | payer MEDICARE, OTHER ==
[~2018-08-27] VITALS: Ht 180.3 cm; Wt 84.0 kg
[~2018-08-27 11:19] MED LIST changes: -0.9 % SODIUM CHLORIDE 10 ML VIAL ONE; -etomidate 2mg/ml inj. ONE; -rocuronium 10mg/ml inj IV ONE
[2018-08-27 12:05] LABS: BASOPHILS % (AUTO) 0.5 % (0-1); EOSINOPHILS # (AUTO) 0.2 X10'3 (0-0.9); EOSINOPHILS % (AUTO) 2.3 % (0-6); HEMATOCRIT 39.3 % (42.0-52.0); HEMOGLOBIN 12.4 g/dl (14.0-17.9); LYMPHOCYTES # (AUTO) 1.5 X10'3 (1.1-4.8); LYMPHOCYTES % (AUTO) 19.7 % (21-51); MEAN CORPUSCULAR HEMOGLOBIN 27.6 PG (27.0-31.0); MEAN CORPUSCULAR HGB CONC 31.5 % (33.0-36.5); MEAN CORPUSCULAR VOLUME 87.7 FL (78-98); MEAN PLATELET VOLUME 8.5 FL (7.4-10.4); MONOCYTES # (AUTO) 0.5 X10'3 (0-0.9); MONOCYTES % (AUTO) 6.2 % (2-12); NEUTROPHILS # (AUTO) 5.4 X10'3 (1.8-7.7); NEUTROPHILS % (AUTO) 71.3 % (42-75); PLATELET COUNT 235 X10'3 (140-440); RED BLOOD COUNT 4.48 X10'6 (4.70-6.10); RED CELL DISTRIBUTION WIDTH 17.5 % (11.5-14.5); WHITE BLOOD COUNT 7.6 X10'3 (4.5-11.0)
[2018-08-27 12:19] LABS: INR 1.1 INR; PARTIAL THROMBOPLASTIN TIME 27 SECONDS (22-32); PROTHROMBIN TIME 11.4 SECONDS (9.0-12.0)
[2018-08-27 12:21] LABS: ALANINE AMINOTRANSFERASE 15 U/L (12-78); ALBUMIN 3.7 G/DL (3.4-5.0); ALBUMIN/GLOBULIN RATIO 0.9 (1.1-1.5); ALKALINE PHOSPHATASE 187 IU/L (46-116); ANION GAP 10 (8-16); ASPARTATE AMINO TRANSFERASE 14 U/L (10-37); BILIRUBIN,TOTAL 0.7 MG/DL (0.1-1.0); BLOOD UREA NITROGEN 14 MG/DL (7-18); BUN/CREATININE RATIO 11.7 (5.4-32.0); CALCIUM 8.9 MG/DL (8.5-10.1); CHLORIDE 103 MMOL/L (99-107); GLUCOSE 96 MG/DL (70-104); POTASSIUM 3.8 MMOL/L (3.5-5.1); SODIUM 140 MMOL/L (135-145); TOTAL PROTEIN 7.9 G/DL (6.4-8.2); eGFR 60 ML/MIN
--- NOTE | 2018-08-27 14:15 | NUR ---
PT IS 72 YO MALE C/O SOB X 1DAY, "WHEN I GO TO SLEEP I WAKE UP A COUPLE MINUTES LATER", PT IS RESTING QUIETLY ON GURNEY, RESP EVEN AND UNLABORED, HAS CAROTID SURGERY 6 WEEKS AGO, 3-4 DAYS AFTERWARDS PT FELL FOR UNK REASON AT HOME "I BROKE MY LOWER BACK AND I WAS IN A COMA FOR 5 DAYS IN THE ICU", PT ALSO C/O INSOMNIA X2 WEEKS.
[2018-08-27] MEDS ORDERED: furosemide 40mg/4ml inj IV ONE (15:20)
--- NOTE | 2018-08-27 15:30 | NUR ---
DR HOPKINS AWARE OF PULSE OX 88% ON 4LITERS, PT IS RESTING QUIETLY ON GURNEY, RESP EVEN AND UNLABORED, NO C/O SOB, SKIN P/W/D, NO CHEST PAIN/DISCOMFORT
--- NOTE | 2018-08-27 15:35 | NUR ---
INCREASED 02 TO 6LITERS PULSE OX READING (WITH GOOD PLETH) REMAINS 88%,
--- NOTE | 2018-08-27 15:41 | NUR ---
PULSE OX IS NOW 94% ON 6 LITERS
--- NOTE | 2018-08-27 16:00 | NUR ---
pt continues to rest quietly on bed, resp even and unlabored
[2018-08-27] MEDS ORDERED: iohexol 350MG/ML 100ml bottle IV ONE (16:28)
--- NOTE | 2018-08-27 17:00 | NUR ---
pt is resting quietly, waiting to be evaluated by hospitalist
[2018-08-27] MEDS ORDERED: levoFLOXACIN-Levaquin 750MG/D5 150 ML IV ONE (17:05)
[2018-08-27] MEDS ORDERED: CARV-50 PO (18:07)
[2018-08-27] MEDS ORDERED: AMIO200T40 PO (18:07)
[2018-08-27] MEDS ORDERED: LISI-600 PO (18:07)
[2018-08-27] MEDS ORDERED: LISI-604 PO (18:07)
--- NOTE | 2018-08-27 18:07 | NUR ---
pt moved to room 13,
[2018-08-27] MEDS ORDERED: acetaminophen 325mg tablet PO PRN (20:40)
[2018-08-27] MEDS ORDERED: ondansetron/PF 4mg/2ml inj IV PRN (20:40)
[2018-08-27] MEDS ORDERED: mag hydrox/Alum hydrox/simeth 30ml oral suspension PO PRN (20:40)
[2018-08-27] MEDS ORDERED: magnesium hydroxide 30ml (MOM) UD suspension PO PRN (20:40)
--- NOTE | 2018-08-27 20:50 | NUR ---
ATTEMPTED REPORT, NURSE TO CALL BACK
[2018-08-27 21:30] VITALS: BP 148/82
[2018-08-27 23:00] VITALS: BP 123/63
[2018-08-28 02:00] VITALS: BP 121/66
--- NOTE | 2018-08-28 04:00 | NUR ---
Patient in room PCU 3013. I have received report from Olivia SMITH and had the opportunity to ask questions and assume patient care. Patient resting on right side, in apparent distress.
--- NOTE | 2018-08-28 04:10 | NUR ---
I agree with Olivia's charting and will monitor patient throughout the end of the shift.
--- NOTE | 2018-08-28 06:31 | NUR ---
Problems reprioritized. Patient report given, questions answered & plan of care reviewed with Emily RN. Patient resting, appears in no distress.
--- NOTE | 2018-08-28 06:31 | NUR ---
Patient in room PCU 3013. I have received report from Mery SMITH and had the opportunity to ask questions and assume patient care.
[2018-08-28 06:49] VITALS: BP 138/78
[2018-08-28 07:30] LABS: BASOPHILS % (AUTO) 0.6 % (0-1); EOSINOPHILS # (AUTO) 0.1 X10'3 (0-0.9); EOSINOPHILS % (AUTO) 1.9 % (0-6); HEMOGLOBIN 12.4 g/dl (14.0-17.9); LYMPHOCYTES # (AUTO) 1.5 X10'3 (1.1-4.8); LYMPHOCYTES % (AUTO) 21.5 % (21-51); MEAN CORPUSCULAR HEMOGLOBIN 27.5 PG (27.0-31.0); MEAN CORPUSCULAR HGB CONC 31.7 % (33.0-36.5); MEAN CORPUSCULAR VOLUME 86.7 FL (78-98); MEAN PLATELET VOLUME 8.6 FL (7.4-10.4); MONOCYTES # (AUTO) 0.6 X10'3 (0-0.9); PLATELET COUNT 255 X10'3 (140-440); RED CELL DISTRIBUTION WIDTH 17.1 % (11.5-14.5); WHITE BLOOD COUNT 7.2 X10'3 (4.5-11.0)
[2018-08-28 07:49] LABS: ALANINE AMINOTRANSFERASE 15 U/L (12-78); ALBUMIN 3.4 G/DL (3.4-5.0); ALBUMIN/GLOBULIN RATIO 0.9 (1.1-1.5); ALKALINE PHOSPHATASE 176 IU/L (46-116); ANION GAP 10 (8-16); ASPARTATE AMINO TRANSFERASE 13 U/L (10-37); BILIRUBIN,TOTAL 1.2 MG/DL (0.1-1.0); BLOOD UREA NITROGEN 14 MG/DL (7-18); BUN/CREATININE RATIO 10.7 (5.4-32.0); CALCIUM 8.7 MG/DL (8.5-10.1); CHLORIDE 100 MMOL/L (99-107); CREATININE 1.31 MG/DL (0.60-1.10); GLUCOSE 93 MG/DL (70-104); POTASSIUM 3.7 MMOL/L (3.5-5.1); SODIUM 141 MMOL/L (135-145); TOTAL CARBON DIOXIDE 31.4 MMOL/L (24-32); TOTAL PROTEIN 7.4 G/DL (6.4-8.2); eGFR 54 ML/MIN
[2018-08-28] MEDS ORDERED: amiodarone 200mg tablet PO SCH (08:00)
[2018-08-28] MEDS ORDERED: carVEDilol 12.5mg tablet PO SCH (08:00)
[2018-08-28] MEDS ORDERED: heparin, porcine 5000 units/ml vial SQ SCH (08:00)
[2018-08-28] MEDS ORDERED: lisinopril 5mg tablet PO SCH (08:00)
[2018-08-28] MEDS ORDERED: CefTRIAXone/D5W-Rocephin 1gm 50 ML IV SCH (08:00)
[2018-08-28] MEDS ORDERED: furosemide 40mg/4ml inj IV SCH (08:00)
[2018-08-28] MEDS ORDERED: atorvastatin 20mg tablet PO SCH (08:00)
[2018-08-28] MEDS ORDERED: FURO-150 PO (09:17)
[2018-08-28] MEDS ORDERED: pneumococcal 23-VAL P-sac vacc 25 mcg/0.5ml vial IMVAC ONE (11:00)
--- NOTE | 2018-08-28 11:29 | NUR ---
Pt walked to lobby to meet for discharge. All discharge paperwork completed, reviewed, and signed. IV dc'd, medical id bands removed, and telebox returned. Pt happy with care discharge.
== END 2018-08-28 11:33 | disposition home or self-care (01) | DRG 291 ==
LOC: ER 11:20 → PCU 3S 20:37
PROVIDERS: ADMIT Internal Medicine; ATTEND Internal Medicine
PROC: B3201ZZ Computerized Tomography (CT Scan) of Thoracic Aorta using Low Osmolar Contrast (ICD-10-PCS; 2018-08-27)
PROC: 3E02340 Introduction of Influenza Vaccine into Muscle, Percutaneous Approach (ICD-10-PCS; principal; 2018-08-28)
PROC: 3E0234Z Introduction of Serum, Toxoid and Vaccine into Muscle, Percutaneous Approach (ICD-10-PCS; 2018-08-28)
DX: I50.23 Acute on chronic systolic (congestive) heart failure (principal); J18.9 Pneumonia, unspecified organism; I25.10 Atherosclerotic heart disease of native coronary artery without angina pectoris; R06.03 Acute respiratory distress; R09.02 Hypoxemia; M10.9 Gout, unspecified; F12.90 Cannabis use, unspecified, uncomplicated; I48.0 Paroxysmal atrial fibrillation; Z79.899 Other long term (current) drug therapy; I25.2 Old myocardial infarction; Z86.73 Personal history of transient ischemic attack (TIA), and cerebral infarction without residual deficits; Z87.891 Personal history of nicotine dependence; Z95.1 Presence of aortocoronary bypass graft; Z23 Encounter for immunization; Z88.0 Allergy status to penicillin; Z91.018 Allergy to other foods
CPT/HCPCS: 36415; 71045; 71275; 80053; 83880; 84484; 85025; 85610; 85730; 87070; 90732; 93005; 96365; 96366; 96375; 99285; G0378; J0696; J1644; J1940; J1956; Q9967

== ENCOUNTER 2019-09-29 12:41 | Outpatient (CLI) | payer MEDICARE ==
[~2019-09-29 12:41] MED LIST changes: +ASPI-611 PO; +CARV-50 PO; +CLIN-90 PO; +FURO20TA4 PO; +LISI-600 PO; -METO25TA6 PO
[2019-09-29 13:43] LABS: BASOPHILS # (AUTO) 0.1 X10'3 (0-0.2); BASOPHILS % (AUTO) 0.6 % (0-1); EOSINOPHILS # (AUTO) 0.4 X10'3 (0-0.9); EOSINOPHILS % (AUTO) 3.7 % (0-6); HEMOGLOBIN 13.9 g/dl (14.0-17.9); LYMPHOCYTES # (AUTO) 2.3 X10'3 (1.1-4.8); LYMPHOCYTES % (AUTO) 21.3 % (21-51); MEAN CORPUSCULAR HEMOGLOBIN 31.8 PG (27.0-31.0); MEAN CORPUSCULAR HGB CONC 33.1 g/dL (33.0-36.5); MEAN CORPUSCULAR VOLUME 96.2 FL (78-98); MEAN PLATELET VOLUME 8.7 FL (7.4-10.4); MONOCYTES # (AUTO) 0.8 X10'3 (0-0.9); MONOCYTES % (AUTO) 7.7 % (2-12); NEUTROPHILS # (AUTO) 7.1 X10'3 (1.8-7.7); NEUTROPHILS % (AUTO) 66.7 % (42-75); PLATELET COUNT 228 X10'3 (140-440); RED BLOOD COUNT 4.37 X10'6 (4.70-6.10); RED CELL DISTRIBUTION WIDTH 17.2 % (11.5-14.5); WHITE BLOOD COUNT 10.6 X10'3 (4.5-11.0)
[2019-09-29 14:11] LABS: ALANINE AMINOTRANSFERASE 12 U/L (12-78); ALBUMIN 3.9 G/DL (3.4-5.0); ALKALINE PHOSPHATASE 156 IU/L (46-116); ANION GAP 9 (8-16); ASPARTATE AMINO TRANSFERASE 20 U/L (10-37); BILIRUBIN,TOTAL 0.7 MG/DL (0.1-1.0); BLOOD UREA NITROGEN 13 MG/DL (7-18); BUN/CREATININE RATIO 12.6 (5.4-32.0); C-REACTIVE PROTEIN 3.04 MG/DL (0.0-0.5); CALCIUM 8.9 MG/DL (8.5-10.1); CHLORIDE 104 MMOL/L (99-107); CREATININE 1.03 MG/DL (0.60-1.10); GLUCOSE 83 MG/DL (70-104); POTASSIUM 3.8 MMOL/L (3.5-5.1); SODIUM 141 MMOL/L (135-145); TOTAL CARBON DIOXIDE 27.7 MMOL/L (24-32); eGFR 71 ML/MIN
== END 2019-09-29 23:59 | disposition home or self-care (01) ==
LOC: LAB 12:41
PROVIDERS: ATTEND Obstetrics & Gynecology
DX: L03.114 Cellulitis of left upper limb (principal)
CPT/HCPCS: 36415; 80053; 85025; 86140; 87040

== ENCOUNTER 2021-05-04 11:01 | Emergency (ER) | payer MEDICARE ==
[~2021-05-04] VITALS: Ht 180.3 cm; Wt 74.5 kg
[~2021-05-04 11:01] MED LIST changes: -CLIN-90 PO; +CLIN-97 PO; -LISI-600 PO; +LISI20TA28 PO
[2021-05-04 11:31] VITALS: BP 106/59
[2021-05-04] MEDS ORDERED: MELA3TAB70 PO (12:24)
[2021-05-04 12:28] LABS: BASOPHILS % (AUTO) 0.4 % (0-1); EOSINOPHILS # (AUTO) 0.1 X10'3 (0-0.9); EOSINOPHILS % (AUTO) 0.6 % (0-6); HEMATOCRIT 36.5 % (42.0-52.0); HEMOGLOBIN 11.6 g/dl (14.0-17.9); LYMPHOCYTES # (AUTO) 0.8 X10'3 (1.1-4.8); LYMPHOCYTES % (AUTO) 7.6 % (21-51); MEAN CORPUSCULAR HEMOGLOBIN 31.3 PG (27.0-31.0); MEAN CORPUSCULAR HGB CONC 31.7 g/dL (33.0-36.5); MEAN CORPUSCULAR VOLUME 98.7 FL (78-98); MEAN PLATELET VOLUME 8.8 FL (7.4-10.4); MONOCYTES # (AUTO) 0.7 X10'3 (0-0.9); MONOCYTES % (AUTO) 6.4 % (2-12); NEUTROPHILS # (AUTO) 9.4 X10'3 (1.8-7.7); PLATELET COUNT 348 X10'3 (140-440); RED CELL DISTRIBUTION WIDTH 18.1 % (11.5-14.5)
[2021-05-04 12:41] LABS: ALANINE AMINOTRANSFERASE 33 U/L (12-78); ALBUMIN 2.8 G/DL (3.4-5.0); ALBUMIN/GLOBULIN RATIO 0.5 (1.1-1.5); ALKALINE PHOSPHATASE 121 IU/L (46-116); ANION GAP 12 (8-16); ASPARTATE AMINO TRANSFERASE 34 U/L (10-37); BILIRUBIN,TOTAL 0.4 MG/DL (0.1-1.0); BLOOD UREA NITROGEN 41 MG/DL (7-18); BUN/CREATININE RATIO 23.4 (5.4-32.0); CALCIUM 8.9 MG/DL (8.5-10.1); CHLORIDE 102 MMOL/L (99-107); CREATININE 1.75 MG/DL (0.60-1.10); GLUCOSE 102 MG/DL (70-104); POTASSIUM 4.4 MMOL/L (3.5-5.1); SODIUM 138 MMOL/L (135-145); TOTAL CARBON DIOXIDE 24.1 MMOL/L (24-32); TOTAL PROTEIN 8.3 G/DL (6.4-8.2); eGFR 38 ML/MIN
== END 2021-05-04 13:15 | disposition home or self-care (01) ==
LOC: ER 11:02
DX: G47.00 Insomnia, unspecified (principal); I25.10 Atherosclerotic heart disease of native coronary artery without angina pectoris; I50.9 Heart failure, unspecified; I25.2 Old myocardial infarction; M10.9 Gout, unspecified; F12.90 Cannabis use, unspecified, uncomplicated; Z86.73 Personal history of transient ischemic attack (TIA), and cerebral infarction without residual deficits; Z98.890 Other specified postprocedural states; Z88.0 Allergy status to penicillin; Z79.82 Long term (current) use of aspirin; Z79.2 Long term (current) use of antibiotics; Z79.899 Other long term (current) drug therapy; W19.XXXA Unspecified fall, initial encounter; Y93.89 Activity, other specified; Y92.89 Other specified places as the place of occurrence of the external cause; Y99.8 Other external cause status
CPT/HCPCS: 36415; 71045; 80053; 85025; 99284

== ENCOUNTER 2022-01-18 05:58 | Inpatient (IN) | payer MEDICARE ==
[~2022-01-18] VITALS: Ht 180.3 cm; Wt 77.3 kg
[~2022-01-18 05:58] MED LIST changes: +MELA3TAB70 PO
[2022-01-18 07:16] LABS: ALANINE AMINOTRANSFERASE 13 U/L (12-78); ALBUMIN 3.7 G/DL (3.4-5.0); ANION GAP 8 (8-16); ASPARTATE AMINO TRANSFERASE 14 U/L (10-37); BASOPHILS # (AUTO) 0.1 X10'3 (0-0.2); BASOPHILS % (AUTO) 1.1 % (0-1); BILIRUBIN,TOTAL 0.9 MG/DL (0.1-1.0); BLOOD UREA NITROGEN 14 MG/DL (7-18); BUN/CREATININE RATIO 11.6 (5.4-32.0); CALCIUM 8.5 MG/DL (8.5-10.1); CHLORIDE 106 MMOL/L (99-107); CREATININE 1.21 MG/DL (0.60-1.10); EOSINOPHILS # (AUTO) 0.3 X10'3 (0-0.9); EOSINOPHILS % (AUTO) 4.4 % (0-6); GLUCOSE 110 MG/DL (70-104); HEMATOCRIT 33.7 % (42.0-52.0); HEMOGLOBIN 10.9 g/dl (14.0-17.9); LYMPHOCYTES % (AUTO) 28.7 % (21-51); MEAN CORPUSCULAR HEMOGLOBIN 26.9 PG (27.0-31.0); MEAN CORPUSCULAR HGB CONC 32.2 g/dL (33.0-36.5); MEAN CORPUSCULAR VOLUME 83.6 FL (78-98); MEAN PLATELET VOLUME 9.3 FL (7.4-10.4); MONOCYTES # (AUTO) 0.6 X10'3 (0-0.9); MONOCYTES % (AUTO) 8.4 % (2-12); NEUTROPHILS % (AUTO) 57.4 % (42-75); PLATELET COUNT 231 X10'3 (140-440); POTASSIUM 3.5 MMOL/L (3.5-5.1); RED BLOOD COUNT 4.03 X10'6 (4.70-6.10); SODIUM 140 MMOL/L (135-145); TOTAL CARBON DIOXIDE 26.5 MMOL/L (24-32); TOTAL PROTEIN 7.3 G/DL (6.4-8.2); WHITE BLOOD COUNT 6.9 X10'3 (4.5-11.0); eGFR 59 ML/MIN
[2022-01-18 07:17] LABS: ALKALINE PHOSPHATASE 109 IU/L (46-116)
[2022-01-18] MEDS ORDERED: aspirin 81mg tab.chew PO ONE (07:35)
[2022-01-18 08:34] LABS: APTT 27 SECONDS (22-32); D-DIMER 0.72 MG/L FEU (0-0.50)
[2022-01-18] MEDS ORDERED: heparin 10,000 units/1 ML INJ IV ONE (09:45)
[2022-01-18] MEDS ORDERED: heparin 25,000 UNIT/250ml bag 250 ML IV SCH (09:45)
[2022-01-18] MEDS ORDERED: furosemide 10 MG/1 ML 10ml inj IV ONE (10:05)
[2022-01-18] MEDS ORDERED: magnesium 4gm in 100ml NS 100 ML IV PRN (10:25)
[2022-01-18] MEDS ORDERED: potassium CL 10mEq/100ml bag 100 ML IV PRN (10:25)
[2022-01-18] MEDS ORDERED: ondansetron/PF 4mg/2ml inj IV PRN (10:25)
[2022-01-18] MEDS ORDERED: acetaminophen 325mg tablet PO PRN (10:25)
[2022-01-18] MEDS ORDERED: mag hydrox/Alum hydrox/simeth 30ml oral suspension PO PRN (10:25)
[2022-01-18] MEDS ORDERED: magnesium Cl slow-release 64mg tablet PO PRN (10:25)
[2022-01-18] MEDS ORDERED: magnesium hydroxide 30ml (MOM) UD suspension PO PRN (10:25)
[2022-01-18] MEDS ORDERED: magnesium 2GM in 50ml NS 50 ML IV PRN (10:25)
[2022-01-18] MEDS ORDERED: POTASSIUM BICARB 20meq eff tab 20 MEQ TABLET.EFF PO PRN ×2 (10:25)
[2022-01-18 11:04] LABS: MAGNESIUM 2.1 MG/DL (1.5-2.4); POTASSIUM 3.8 MMOL/L (3.5-5.1)
[2022-01-18] MEDS ORDERED: LORazepam 2 mg/ml vial ONE (11:37)
--- NOTE | 2022-01-18 19:30 | NUR ---
Patient in room PCU 3027. I have received report from LUIS Boyce and had the opportunity to ask questions and assume patient care.
[2022-01-18] MEDS ORDERED: heparin, porcine 5000 units/ml vial SQ SCH (20:00)
[2022-01-18] MEDS ORDERED: furosemide 10 MG/1 ML 10ml inj IV SCH (20:00)
[2022-01-18] MEDS: K and/or MAG REPLACEMENT MC SCH (20:00)
--- NOTE | 2022-01-18 20:00 | NUR ---
pt arrived to floor via gurney. assisted to bed . oriented to room, call light, urinal. pt doing fine. settled into bed.
[2022-01-18 20:15] VITALS: BP 154/96
[2022-01-18] MEDS: docusate sod 100mg capsule PO SCH (21:28)
[2022-01-18 22:00] VITALS: BP 157/72
[2022-01-19] MEDS ORDERED: heparin 10,000 units/1 ML INJ IV PRN (01:25)
[2022-01-19 02:00] VITALS: BP 144/93
--- NOTE | 2022-01-19 03:19 | NUR ---
notified MD reconciliation accountant regarding pt having 13 beats of V tach. pt asymptomatic, no complaints of chest pain or trouble breathing. pt on cardiac heparin drip. no s/s of bleeding.
[2022-01-19 06:14] LABS: BASOPHILS # (AUTO) 0.1 X10'3 (0-0.2); BASOPHILS % (AUTO) 1.2 % (0-1); EOSINOPHILS # (AUTO) 0.3 X10'3 (0-0.9); EOSINOPHILS % (AUTO) 3.5 % (0-6); HEMATOCRIT 39.7 % (42.0-52.0); HEMOGLOBIN 12.8 g/dl (14.0-17.9); LYMPHOCYTES # (AUTO) 2.1 X10'3 (1.1-4.8); LYMPHOCYTES % (AUTO) 24.3 % (21-51); MEAN CORPUSCULAR HEMOGLOBIN 26.2 PG (27.0-31.0); MEAN CORPUSCULAR HGB CONC 32.3 g/dL (33.0-36.5); MEAN CORPUSCULAR VOLUME 81.1 FL (78-98); MEAN PLATELET VOLUME 9.7 FL (7.4-10.4); MONOCYTES # (AUTO) 0.7 X10'3 (0-0.9); MONOCYTES % (AUTO) 8.4 % (2-12); NEUTROPHILS # (AUTO) 5.4 X10'3 (1.8-7.7); NEUTROPHILS % (AUTO) 62.6 % (42-75); PLATELET COUNT 257 X10'3 (140-440); RED CELL DISTRIBUTION WIDTH 16.4 % (11.5-14.5); WHITE BLOOD COUNT 8.7 X10'3 (4.5-11.0)
[2022-01-19 06:30] VITALS: BP 108/76
--- NOTE | 2022-01-19 06:30 | NUR ---
Patient in room PCU 3027. I have received report from LUIS Waite and had the opportunity to ask questions and assume patient care.
--- NOTE | 2022-01-19 06:57 | NUR ---
Problems reprioritized. Patient report given, questions answered & plan of care reviewed with LUIS Romero.
[2022-01-19 07:16] LABS: ALBUMIN 4.2 G/DL (3.4-5.0); ANION GAP 12 (8-16); BLOOD UREA NITROGEN 15 MG/DL (7-18); BUN/CREATININE RATIO 11.7 (5.4-32.0); CALCIUM 9.5 MG/DL (8.5-10.1); CHLORIDE 100 MMOL/L (99-107); CREATININE 1.28 MG/DL (0.60-1.10); GLUCOSE 97 MG/DL (70-104); MAGNESIUM 2.1 MG/DL (1.5-2.4); POTASSIUM 3.6 MMOL/L (3.5-5.1); SODIUM 139 MMOL/L (135-145); TOTAL CARBON DIOXIDE 26.8 MMOL/L (24-32); eGFR 55 ML/MIN
[2022-01-19] MEDS: K and/or MAG REPLACEMENT MC SCH (07:45)
--- NOTE | 2022-01-19 08:30 | NUR ---
Dr Gale notified of EKG result shows acute ID
[2022-01-19] MEDS ORDERED: amiodarone 200mg tablet PO SCH (08:50)
[2022-01-19] MEDS ORDERED: POTA10TA37 PO (09:28)
[2022-01-19] MEDS ORDERED: FURO-150 PO (09:28)
[2022-01-19] MEDS ORDERED: AMIO200T67 PO (09:28)
[2022-01-19] MEDS: docusate sod 100mg capsule PO SCH (10:10)
[2022-01-19] MEDS ORDERED: furosemide 20MG tablet PO ONE (10:15)
[2022-01-19 10:30] VITALS: BP 147/79
--- NOTE | 2022-01-19 11:55 | NUR ---
DC inst provided to pt. IV DC'd, tip intact. All belongings sent w/pt. Pt ambulated to vehicle.
== END 2022-01-19 11:54 | disposition home or self-care (01) | DRG 280 ==
LOC: ER 05:59 → ED HOLD 10:25 → PCU 3S 20:00
PROVIDERS: ADMIT Family Medicine; ATTEND Family Medicine
PROC: B32T1ZZ Computerized Tomography (CT Scan) of Left Pulmonary Artery using Low Osmolar Contrast (ICD-10-PCS; principal; 2022-01-18)
PROC: B3201ZZ Computerized Tomography (CT Scan) of Thoracic Aorta using Low Osmolar Contrast (ICD-10-PCS; 2022-01-18)
PROC: B32S1ZZ Computerized Tomography (CT Scan) of Right Pulmonary Artery using Low Osmolar Contrast (ICD-10-PCS; 2022-01-18)
DX: I11.0 Hypertensive heart disease with heart failure (principal); I21.A1 Myocardial infarction type 2; I50.33 Acute on chronic diastolic (congestive) heart failure; E78.5 Hyperlipidemia, unspecified; M10.9 Gout, unspecified; F12.90 Cannabis use, unspecified, uncomplicated; I25.10 Atherosclerotic heart disease of native coronary artery without angina pectoris; I25.2 Old myocardial infarction; Z86.73 Personal history of transient ischemic attack (TIA), and cerebral infarction without residual deficits; Z95.1 Presence of aortocoronary bypass graft; Z88.0 Allergy status to penicillin; Z91.018 Allergy to other foods; Z79.899 Other long term (current) drug therapy
CPT/HCPCS: 36415; 71045; 71275; 80048; 80053; 83735; 83880; 84132; 84484; 85025; 85379; 85610; 85730; 87081; 93005; 93306; 96374; 99285; G0378; J1644; J1940; J2060; J3490

== ENCOUNTER 2022-06-17 23:23 | Emergency (ER) | payer MEDICARE ==
[~2022-06-17] VITALS: Ht 180.3 cm; Wt 77.3 kg
[~2022-06-17 23:23] MED LIST changes: +AMIO200T67 PO; -ASPI-611 PO; -ATOR40TA72 PO; -CLIN-97 PO; -FURO20TA4 PO; -LISI20TA28 PO; +POTA-206 PO
--- NOTE | 2022-06-17 23:44 | NUR ---
PT TO X RAY VIA WHEEL CHAIR
[2022-06-18 00:01] LABS: BASOPHILS # (AUTO) 0.1 X10'3 (0-0.2); BASOPHILS % (AUTO) 1.1 % (0-1); EOSINOPHILS # (AUTO) 0.4 X10'3 (0-0.9); EOSINOPHILS % (AUTO) 4.1 % (0-6); HEMATOCRIT 34.1 % (42.0-52.0); HEMOGLOBIN 11.4 g/dl (14.0-17.9); LYMPHOCYTES # (AUTO) 2.3 X10'3 (1.1-4.8); LYMPHOCYTES % (AUTO) 23.9 % (21-51); MEAN CORPUSCULAR HEMOGLOBIN 23.8 PG (27.0-31.0); MEAN CORPUSCULAR HGB CONC 33.4 g/dL (33.0-36.5); MEAN CORPUSCULAR VOLUME 71.2 FL (78-98); MEAN PLATELET VOLUME 8.2 FL (7.4-10.4); MONOCYTES # (AUTO) 0.7 X10'3 (0-0.9); MONOCYTES % (AUTO) 7.2 % (2-12); NEUTROPHILS # (AUTO) 6.3 X10'3 (1.8-7.7); NEUTROPHILS % (AUTO) 63.7 % (42-75); PLATELET COUNT 284 X10'3 (140-440); RED BLOOD COUNT 4.79 X10'6 (4.70-6.10); WHITE BLOOD COUNT 9.8 X10'3 (4.5-11.0)
[2022-06-18 00:15] LABS: ALANINE AMINOTRANSFERASE 19 U/L (12-78); ALBUMIN 3.9 G/DL (3.4-5.0); ALKALINE PHOSPHATASE 148 IU/L (46-116); ANION GAP 8 (8-16); ASPARTATE AMINO TRANSFERASE 19 U/L (10-37); BILIRUBIN,TOTAL 0.8 MG/DL (0.1-1.0); BLOOD UREA NITROGEN 17 MG/DL (7-18); BUN/CREATININE RATIO 12.3 (5.4-32.0); CALCIUM 9.4 MG/DL (8.5-10.1); CHLORIDE 104 MMOL/L (99-107); CREATININE 1.38 MG/DL (0.60-1.10); GLUCOSE 114 MG/DL (70-104); POTASSIUM 3.2 MMOL/L (3.5-5.1); SODIUM 142 MMOL/L (135-145); TOTAL CARBON DIOXIDE 30.3 MMOL/L (24-32); TOTAL PROTEIN 7.9 G/DL (6.4-8.2); eGFR 50 ML/MIN
[2022-06-18 00:21] LABS: MAGNESIUM 2.2 MG/DL (1.5-2.4)
[2022-06-18] MEDS ORDERED: furosemide 10 MG/1 ML 10ml inj IV ONE (00:30)
[2022-06-18] MEDS ORDERED: potassium Cl 20 mEq SR tablet PO STA (00:35)
[2022-06-18] MEDS ORDERED: POTA-207 PO (02:22)
[2022-06-18 02:31] VITALS: BP 150/93
== END 2022-06-18 02:32 | disposition home or self-care (01) ==
LOC: ER 23:24
DX: I50.9 Heart failure, unspecified (principal); I25.10 Atherosclerotic heart disease of native coronary artery without angina pectoris; I25.2 Old myocardial infarction; F12.90 Cannabis use, unspecified, uncomplicated; M10.9 Gout, unspecified; Z86.73 Personal history of transient ischemic attack (TIA), and cerebral infarction without residual deficits; Z98.890 Other specified postprocedural states; Z88.0 Allergy status to penicillin; Z88.8 Allergy status to other drugs, medicaments and biological substances; Z79.899 Other long term (current) drug therapy
CPT/HCPCS: 36415; 71045; 80053; 83735; 83880; 84145; 84484; 85025; 93005; 96374; 99285; J1940

== ENCOUNTER 2022-07-03 23:20 | Emergency (ER) | payer MEDICARE ==
[~2022-07-03] VITALS: Ht 180.3 cm; Wt 81.8 kg
[~2022-07-03 23:20] MED LIST changes: +POTA-207 PO
[2022-07-04 03:25] LABS: BASOPHILS # (AUTO) 0.1 X10'3 (0-0.2); BASOPHILS % (AUTO) 1.3 % (0-1); EOSINOPHILS # (AUTO) 0.3 X10'3 (0-0.9); EOSINOPHILS % (AUTO) 3.5 % (0-6); HEMATOCRIT 34.7 % (42.0-52.0); LYMPHOCYTES # (AUTO) 2.6 X10'3 (1.1-4.8); LYMPHOCYTES % (AUTO) 28.1 % (21-51); MEAN CORPUSCULAR HEMOGLOBIN 23.3 PG (27.0-31.0); MEAN CORPUSCULAR HGB CONC 31.8 g/dL (33.0-36.5); MEAN CORPUSCULAR VOLUME 73.4 FL (78-98); MEAN PLATELET VOLUME 8.8 FL (7.4-10.4); MONOCYTES # (AUTO) 0.8 X10'3 (0-0.9); MONOCYTES % (AUTO) 8.5 % (2-12); NEUTROPHILS # (AUTO) 5.5 X10'3 (1.8-7.7); NEUTROPHILS % (AUTO) 58.6 % (42-75); PLATELET COUNT 279 X10'3 (140-440); RED BLOOD COUNT 4.73 X10'6 (4.70-6.10); RED CELL DISTRIBUTION WIDTH 17.4 % (11.5-14.5); WHITE BLOOD COUNT 9.3 X10'3 (4.5-11.0)
[2022-07-04 03:37] LABS: ALANINE AMINOTRANSFERASE 15 U/L (12-78); ALBUMIN 3.8 G/DL (3.4-5.0); ALKALINE PHOSPHATASE 140 IU/L (46-116); ANION GAP 11 (8-16); ASPARTATE AMINO TRANSFERASE 19 U/L (10-37); BILIRUBIN,TOTAL 0.6 MG/DL (0.1-1.0); BLOOD UREA NITROGEN 24 MG/DL (7-18); BUN/CREATININE RATIO 16.3 (5.4-32.0); CALCIUM 8.8 MG/DL (8.5-10.1); CHLORIDE 106 MMOL/L (99-107); CREATININE 1.47 MG/DL (0.60-1.10); GLUCOSE 98 MG/DL (70-104); POTASSIUM 4.2 MMOL/L (3.5-5.1); SODIUM 141 MMOL/L (135-145); TOTAL PROTEIN 7.7 G/DL (6.4-8.2); eGFR 47 ML/MIN
[2022-07-04] MEDS ORDERED: furosemide 10 MG/1 ML 10ml inj IV ONE (04:10)
[2022-07-04 05:31] VITALS: BP 115/69
== END 2022-07-04 05:35 | disposition home or self-care (01) ==
LOC: ER 23:24
DX: I50.9 Heart failure, unspecified (principal); F12.90 Cannabis use, unspecified, uncomplicated; Z88.0 Allergy status to penicillin; Z91.018 Allergy to other foods
CPT/HCPCS: 36415; 71045; 80053; 83880; 84484; 85025; 93005; 96374; 99285; J1940; A4615

== ENCOUNTER 2022-08-25 00:36 | Inpatient (IN) | payer MEDICARE ==
[~2022-08-25] VITALS: Ht 180.3 cm; Wt 79.2 kg
[~2022-08-25 00:36] MED LIST changes: -POTA-207 PO
[2022-08-25 01:01] LABS: BASOPHILS # (AUTO) 0.1 X10'3 (0-0.2); BASOPHILS % (AUTO) 0.7 % (0-1); EOSINOPHILS # (AUTO) 0.4 X10'3 (0-0.9); HEMATOCRIT 35.5 % (42.0-52.0); HEMOGLOBIN 11.2 g/dl (14.0-17.9); LYMPHOCYTES # (AUTO) 2.5 X10'3 (1.1-4.8); LYMPHOCYTES % (AUTO) 23.4 % (21-51); MEAN CORPUSCULAR HEMOGLOBIN 22.5 PG (27.0-31.0); MEAN CORPUSCULAR HGB CONC 31.5 g/dL (33.0-36.5); MEAN CORPUSCULAR VOLUME 71.6 FL (78-98); MEAN PLATELET VOLUME 8.2 FL (7.4-10.4); MONOCYTES # (AUTO) 0.7 X10'3 (0-0.9); MONOCYTES % (AUTO) 6.3 % (2-12); NEUTROPHILS % (AUTO) 65.6 % (42-75); PLATELET COUNT 258 X10'3 (140-440); RED BLOOD COUNT 4.96 X10'6 (4.70-6.10); WHITE BLOOD COUNT 10.7 X10'3 (4.5-11.0)
[2022-08-25 01:28] LABS: ALANINE AMINOTRANSFERASE 13 U/L (12-78); ALBUMIN 3.6 G/DL (3.4-5.0); ALKALINE PHOSPHATASE 152 IU/L (46-116); ANION GAP 10 (8-16); ASPARTATE AMINO TRANSFERASE 15 U/L (10-37); BILIRUBIN,TOTAL 0.5 MG/DL (0.1-1.0); BLOOD UREA NITROGEN 16 MG/DL (7-18); BUN/CREATININE RATIO 11.1 (5.4-32.0); CALCIUM 8.4 MG/DL (8.5-10.1); CHLORIDE 100 MMOL/L (99-107); CREATININE 1.44 MG/DL (0.60-1.10); GLUCOSE 112 MG/DL (70-104); MAGNESIUM 2.1 MG/DL (1.5-2.4); POTASSIUM 3.4 MMOL/L (3.5-5.1); SODIUM 136 MMOL/L (135-145); TOTAL CARBON DIOXIDE 25.7 MMOL/L (24-32); TOTAL PROTEIN 7.2 G/DL (6.4-8.2); eGFR 48 ML/MIN
[2022-08-25] MEDS ORDERED: furosemide 10 MG/1 ML 10ml inj IV ONE (02:10)
[2022-08-25] MEDS ORDERED: potassium Cl 20 mEq SR tablet PO PRN (02:50)
[2022-08-25] MEDS ORDERED: acetaminophen 325mg tablet PO PRN (02:50)
[2022-08-25] MEDS ORDERED: morphine 2 MG/ML inj. syringe IV PRN ×2 (02:50)
[2022-08-25] MEDS ORDERED: HYDROcodone/acetaminophen 5mg/325mg tablet PO PRN (02:50)
[2022-08-25] MEDS ORDERED: mag hydrox/Alum hydrox/simeth 30ml oral suspension PO PRN (02:50)
[2022-08-25] MEDS ORDERED: ondansetron/PF 4mg/2ml inj IV PRN (02:50)
[2022-08-25] MEDS ORDERED: magnesium Cl slow-release 64mg tablet PO PRN (02:50)
[2022-08-25] MEDS ORDERED: magnesium hydroxide 30ml (MOM) UD suspension PO PRN (02:50)
[2022-08-25] MEDS ORDERED: magnesium 4gm in 100ml NS 100 ML IV PRN (02:50)
[2022-08-25] MEDS ORDERED: potassium Cl 40MEQ/1/2NS 520ml 520 ML IV PRN (02:50)
[2022-08-25] MEDS: K and/or MAG REPLACEMENT MC SCH ×2 (08:00→20:00)
[2022-08-25] MEDS: docusate sod 100mg capsule PO SCH ×2 (08:00→21:45)
--- NOTE | 2022-08-25 08:28 | NUR ---
RECEIVED REPORT FROM LUIS WOO FROM ER PT'S AND SON CAME TO VISIT PT. GAVE THEM AN UPDATE AND GOT THEIR CONTACT INFORMATION. PT COMFORTABLE IN NO DISTRESS AT THIS TIME. ORDERED A BREAKFAST TRAY FROM THE KITCHEN.
[2022-08-25 08:30] VITALS: BP 109/70
[2022-08-25] MEDS: furosemide 10 MG/1 ML 10ml inj IV SCH (09:45)
[2022-08-25] MEDS: potassium Cl 20 mEq SR tablet PO PRN ×2 (09:45→21:44)
[2022-08-25] MEDS: enoxaparin 40mg/0.4ml syringe SUBCUT SCH (09:46)
[2022-08-25] MEDS ORDERED: amiodarone 200mg tablet PO SCH (10:50)
[2022-08-25] MEDS ORDERED: aspirin 81mg tab.chew PO ONE (10:50)
[2022-08-25] MEDS ORDERED: AMIO200T61 PO (11:21)
[2022-08-25] MEDS ORDERED: POTA-82 PO (11:22)
[2022-08-25] MEDS ORDERED: ASPI-1265 PO (11:22)
[2022-08-25] MEDS ORDERED: FURO-150 PO (11:22)
[2022-08-25 12:00] VITALS: BP 100/64
--- NOTE | 2022-08-25 14:47 | NUR ---
CONTACTED [employer] TECHNICAL SUPPORT. SPOKE WITH ZULAY. PROVIDED FAX NUMBER HERE AND 'S REQUEST TO FAX THE LATEST RECORDING. [phone] (NUMBER FOR [employer]).
--- NOTE | 2022-08-25 15:02 | NUR ---
DR. CHRISTINE, PT [place], ROOM 3029N HAD 3 SEC EPISODE OF V-TACH. ASYMPTOMATIC. LIFE VEST ON AND WAITING FOR A FAX FROM THE COMPANY ABOUT LATEST RECORDING. THANKS ROEL MANCIA
[2022-08-25 15:45] VITALS: BP 105/59
[2022-08-25] MEDS ORDERED: amiodarone 150mg/dext, iso-os 100 ML IV ONE (16:00)
--- NOTE | 2022-08-25 17:33 | NUR ---
"DR. CHRISTINE, FOR PT [place], ROOM 3026B, PER CHARGE NURSE, AFTER EVALUATION THE EPISODE MIGHT BE AN SVT, NOT A VTACH. THE STRIP IS IN THE CHART. DO YOU STILL WANT TO START ANIODARONE? THANKS ARMINDA MANCIAU"
[2022-08-25 18:00] VITALS: BP 105/59
[2022-08-25] MEDS: potassium Cl 20 mEq SR tablet PO SCH (18:03)
--- NOTE | 2022-08-25 18:49 | NUR ---
Patient in room PCU 3026. I have received report from Arpita SMITH and had the opportunity to ask questions and assume patient care.
[2022-08-25] MEDS ORDERED: CARV25TA2 PO (18:58)
[2022-08-25] MEDS ORDERED: LOSA100T57 PO (18:58)
[2022-08-25] MEDS ORDERED: carVEDilol 3.125mg tablet PO SCH (20:00)
[2022-08-25] MEDS: amiodarone 200mg tablet PO SCH (21:44)
[2022-08-25] MEDS: carVEDilol 12.5mg tablet PO SCH (21:45)
[2022-08-25] MEDS: HYDROcodone/acetaminophen 10/325mg tab PO PRN (21:47)
[2022-08-25 22:00] VITALS: BP 113/84
[2022-08-26] VITALS (7 sets, daily range): BP systolic 83–105; BP diastolic 51–70
[2022-08-26] MEDS: HYDROcodone/acetaminophen 10/325mg tab PO PRN (03:04)
--- NOTE | 2022-08-26 07:12 | NUR ---
Problems reprioritized. Patient report given, questions answered & plan of care reviewed with Arpita SMITH.
[2022-08-26] MEDS ORDERED: non-formulary drug (Carvedilol 1 TAB) PO SCH (08:00)
[2022-08-26] MEDS ORDERED: aspirin 81mg tab.chew PO SCH (08:00)
[2022-08-26] MEDS: K and/or MAG REPLACEMENT MC SCH ×2 (08:00→09:03)
[2022-08-26] MEDS ORDERED: losartan 50mg tablet PO SCH ×2 (08:00)
[2022-08-26] MEDS: docusate sod 100mg capsule PO SCH ×2 (08:00→19:47)
[2022-08-26] MEDS: enoxaparin 40mg/0.4ml syringe SUBCUT SCH (09:01)
[2022-08-26] MEDS: aspirin 81mg tab.chew PO SCH (09:01)
[2022-08-26] MEDS: furosemide 10 MG/1 ML 10ml inj IV SCH (09:01)
[2022-08-26] MEDS: carVEDilol 12.5mg tablet PO SCH (09:02)
[2022-08-26] MEDS: potassium Cl 20 mEq SR tablet PO SCH (09:02)
[2022-08-26 09:19] LABS: BASOPHILS % (AUTO) 0.5 % (0-1); EOSINOPHILS # (AUTO) 0.2 X10'3 (0-0.9); HEMATOCRIT 36.2 % (42.0-52.0); HEMOGLOBIN 11.2 g/dl (14.0-17.9); LYMPHOCYTES # (AUTO) 2.2 X10'3 (1.1-4.8); LYMPHOCYTES % (AUTO) 24.3 % (21-51); MEAN CORPUSCULAR HEMOGLOBIN 22.2 PG (27.0-31.0); MEAN CORPUSCULAR VOLUME 71.4 FL (78-98); MEAN PLATELET VOLUME 9.2 FL (7.4-10.4); MONOCYTES # (AUTO) 0.6 X10'3 (0-0.9); MONOCYTES % (AUTO) 6.9 % (2-12); NEUTROPHILS # (AUTO) 6.1 X10'3 (1.8-7.7); NEUTROPHILS % (AUTO) 66.3 % (42-75); PLATELET COUNT 265 X10'3 (140-440); RED BLOOD COUNT 5.06 X10'6 (4.70-6.10); WHITE BLOOD COUNT 9.3 X10'3 (4.5-11.0)
[2022-08-26 09:31] LABS: ALANINE AMINOTRANSFERASE 14 U/L (12-78); ALBUMIN 3.7 G/DL (3.4-5.0); ALBUMIN/GLOBULIN RATIO 0.9 (1.1-1.5); ALKALINE PHOSPHATASE 159 IU/L (46-116); ANION GAP 15 (8-16); ASPARTATE AMINO TRANSFERASE 16 U/L (10-37); BILIRUBIN,TOTAL 0.9 MG/DL (0.1-1.0); BLOOD UREA NITROGEN 24 MG/DL (7-18); CHLORIDE 100 MMOL/L (99-107); CREATININE 1.85 MG/DL (0.60-1.10); GLUCOSE 95 MG/DL (70-104); POTASSIUM 4.1 MMOL/L (3.5-5.1); SODIUM 137 MMOL/L (135-145); TOTAL CARBON DIOXIDE 22.5 MMOL/L (24-32); TOTAL PROTEIN 7.6 G/DL (6.4-8.2); eGFR 36 ML/MIN
[2022-08-26] MEDS ORDERED: ondansetron 4mg rapidly disintigrating tab PO PRN (10:35)
[2022-08-26] MEDS ORDERED: PERFLUTREN PROTEIN-A MICROSPHR (Optison) 0.22 MG/ML 3ML VIAL IV ONE (13:45)
--- NOTE | 2022-08-26 13:52 | NUR ---
"Echo for hannah Carreno, room 4564l. Thank you"
[2022-08-26] MEDS: furosemide 40mg/4ml inj IV SCH (19:56)
[2022-08-26] MEDS: amiodarone 200mg tablet PO SCH (20:00)
[2022-08-26] MEDS ORDERED: furosemide 40mg/4ml inj IV SCH (20:00)
[2022-08-26] MEDS ORDERED: furosemide 20 MG/2 ML vial IV SCH (20:00)
[2022-08-26] MEDS: LORazepam 0.5 MG tablet PO PRN (21:01)
[2022-08-27 03:15] VITALS: BP 102/57
[2022-08-27 06:29] LABS: BASOPHILS # (AUTO) 0.1 X10'3 (0-0.2); BASOPHILS % (AUTO) 0.7 % (0-1); EOSINOPHILS # (AUTO) 0.2 X10'3 (0-0.9); LYMPHOCYTES # (AUTO) 1.6 X10'3 (1.1-4.8); LYMPHOCYTES % (AUTO) 16.1 % (21-51); MEAN CORPUSCULAR HEMOGLOBIN 22.5 PG (27.0-31.0); MEAN CORPUSCULAR HGB CONC 31.5 g/dL (33.0-36.5); MEAN CORPUSCULAR VOLUME 71.4 FL (78-98); MEAN PLATELET VOLUME 9.1 FL (7.4-10.4); MONOCYTES # (AUTO) 0.8 X10'3 (0-0.9); MONOCYTES % (AUTO) 7.7 % (2-12); NEUTROPHILS # (AUTO) 7.4 X10'3 (1.8-7.7); NEUTROPHILS % (AUTO) 73.5 % (42-75); PLATELET COUNT 271 X10'3 (140-440); RED BLOOD COUNT 4.91 X10'6 (4.70-6.10); RED CELL DISTRIBUTION WIDTH 17.5 % (11.5-14.5); WHITE BLOOD COUNT 10.1 X10'3 (4.5-11.0)
[2022-08-27 06:40] LABS: TOTAL CARBON DIOXIDE 27.8 MMOL/L (24-32)
[2022-08-27 07:00] VITALS: BP 108/70
[2022-08-27 07:12] LABS: ALANINE AMINOTRANSFERASE 16 U/L (12-78); ALBUMIN 3.9 G/DL (3.4-5.0); ALKALINE PHOSPHATASE 156 IU/L (46-116); ANION GAP 11 (8-16); ASPARTATE AMINO TRANSFERASE 16 U/L (10-37); BILIRUBIN,TOTAL 0.9 MG/DL (0.1-1.0); BLOOD UREA NITROGEN 32 MG/DL (7-18); BUN/CREATININE RATIO 17.5 (5.4-32.0); CALCIUM 9.1 MG/DL (8.5-10.1); CHLORIDE 98 MMOL/L (99-107); CREATININE 1.83 MG/DL (0.60-1.10); GLUCOSE 94 MG/DL (70-104); POTASSIUM 4.3 MMOL/L (3.5-5.1); SODIUM 137 MMOL/L (135-145); TOTAL PROTEIN 7.9 G/DL (6.4-8.2); eGFR 36 ML/MIN
[2022-08-27] MEDS: furosemide 40mg/4ml inj IV SCH ×2 (07:55→19:33)
[2022-08-27] MEDS: docusate sod 100mg capsule PO SCH ×2 (07:56→20:00)
[2022-08-27] MEDS: potassium Cl 20 mEq SR tablet PO SCH (07:56)
[2022-08-27] MEDS: aspirin 81mg tab.chew PO SCH (07:56)
[2022-08-27] MEDS: enoxaparin 40mg/0.4ml syringe SUBCUT SCH (07:57)
[2022-08-27] MEDS ORDERED: carVEDilol 3.125mg tablet PO SCH (08:00)
[2022-08-27] MEDS: K and/or MAG REPLACEMENT MC SCH ×2 (08:00→20:00)
[2022-08-27 11:02] VITALS: BP 110/71
--- NOTE | 2022-08-27 12:02 | NUR ---
O2 Sat at rest on room air: 99% O2 Sat with ambulation on room air: 94% No further documentation is necessary.
[2022-08-27] MEDS: metoprolol succinate 25mg (24-HOUR) SR. Tablet PO SCH (15:21)
[2022-08-27 19:00] VITALS: BP 113/71
[2022-08-27] MEDS: LORazepam 0.5 MG tablet PO PRN (21:42)
[2022-08-27] MEDS: amiodarone 200mg tablet PO SCH (21:42)
[2022-08-27 22:30] VITALS: BP 108/71
[2022-08-28 02:00] VITALS: BP 97/52
[2022-08-28 06:54] LABS: BASOPHILS # (AUTO) 0.1 X10'3 (0-0.2); EOSINOPHILS # (AUTO) 0.2 X10'3 (0-0.9); HEMATOCRIT 34.9 % (42.0-52.0); HEMOGLOBIN 10.8 g/dl (14.0-17.9); LYMPHOCYTES # (AUTO) 1.7 X10'3 (1.1-4.8); LYMPHOCYTES % (AUTO) 19.5 % (21-51); MEAN CORPUSCULAR HEMOGLOBIN 22.3 PG (27.0-31.0); MEAN CORPUSCULAR HGB CONC 31.1 g/dL (33.0-36.5); MEAN CORPUSCULAR VOLUME 71.8 FL (78-98); MEAN PLATELET VOLUME 9.4 FL (7.4-10.4); MONOCYTES # (AUTO) 0.7 X10'3 (0-0.9); MONOCYTES % (AUTO) 7.4 % (2-12); NEUTROPHILS # (AUTO) 6.2 X10'3 (1.8-7.7); NEUTROPHILS % (AUTO) 70.1 % (42-75); PLATELET COUNT 269 X10'3 (140-440); RED BLOOD COUNT 4.86 X10'6 (4.70-6.10); RED CELL DISTRIBUTION WIDTH 17.6 % (11.5-14.5); WHITE BLOOD COUNT 8.8 X10'3 (4.5-11.0)
[2022-08-28 07:00] VITALS: BP 95/66
[2022-08-28 07:13] LABS: ALANINE AMINOTRANSFERASE 17 U/L (12-78); ALBUMIN 3.8 G/DL (3.4-5.0); ALBUMIN/GLOBULIN RATIO 0.9 (1.1-1.5); ALKALINE PHOSPHATASE 155 IU/L (46-116); ANION GAP 10 (8-16); ASPARTATE AMINO TRANSFERASE 23 U/L (10-37); BILIRUBIN,TOTAL 1.2 MG/DL (0.1-1.0); BLOOD UREA NITROGEN 38 MG/DL (7-18); BUN/CREATININE RATIO 17.8 (5.4-32.0); CALCIUM 8.5 MG/DL (8.5-10.1); CHLORIDE 98 MMOL/L (99-107); CREATININE 2.13 MG/DL (0.60-1.10); GLUCOSE 97 MG/DL (70-104); SODIUM 135 MMOL/L (135-145); TOTAL CARBON DIOXIDE 27.3 MMOL/L (24-32); eGFR 31 ML/MIN
[2022-08-28] MEDS: K and/or MAG REPLACEMENT MC SCH ×2 (08:00→20:00)
[2022-08-28] MEDS: furosemide 40mg/4ml inj IV SCH ×2 (08:59→20:00)
[2022-08-28] MEDS: metoprolol succinate 25mg (24-HOUR) SR. Tablet PO SCH (09:00)
[2022-08-28] MEDS: aspirin 81mg tab.chew PO SCH (09:00)
[2022-08-28] MEDS: enoxaparin 40mg/0.4ml syringe SUBCUT SCH (09:01)
[2022-08-28] MEDS: potassium Cl 20 mEq SR tablet PO SCH (09:02)
[2022-08-28] MEDS: docusate sod 100mg capsule PO SCH ×2 (09:02→20:00)
[2022-08-28] MEDS ORDERED: LORazepam 2 mg/ml vial IV ONE (15:15)
[2022-08-28] MEDS ORDERED: normal saline 500ml IV soln 500 ML IV ONE (15:15)
[2022-08-28 18:30] VITALS: BP 98/52
[2022-08-28 22:00] VITALS: BP 101/68
[2022-08-28] MEDS: amiodarone 200mg tablet PO SCH (22:21)
[2022-08-29] VITALS (24 sets, daily range): BP systolic 40–135; BP diastolic 17–83
[2022-08-29] MEDS: LORazepam 0.5 MG tablet PO PRN (03:37)
[2022-08-29 06:09] LABS: BASOPHILS # (AUTO) 0.1 X10'3 (0-0.2); BASOPHILS % (AUTO) 0.8 % (0-1); EOSINOPHILS % (AUTO) 0.5 % (0-6); HEMATOCRIT 34.9 % (42.0-52.0); LYMPHOCYTES # (AUTO) 1.3 X10'3 (1.1-4.8); LYMPHOCYTES % (AUTO) 15.8 % (21-51); MEAN CORPUSCULAR HEMOGLOBIN 22.9 PG (27.0-31.0); MEAN CORPUSCULAR HGB CONC 31.6 g/dL (33.0-36.5); MEAN CORPUSCULAR VOLUME 72.6 FL (78-98); MEAN PLATELET VOLUME 9.2 FL (7.4-10.4); MONOCYTES # (AUTO) 0.6 X10'3 (0-0.9); NEUTROPHILS # (AUTO) 6.4 X10'3 (1.8-7.7); NEUTROPHILS % (AUTO) 75.9 % (42-75); PLATELET COUNT 223 X10'3 (140-440); RED CELL DISTRIBUTION WIDTH 17.1 % (11.5-14.5); WHITE BLOOD COUNT 8.5 X10'3 (4.5-11.0)
[2022-08-29 06:20] LABS: ALANINE AMINOTRANSFERASE 251 U/L (12-78); ALBUMIN 3.6 G/DL (3.4-5.0); ALBUMIN/GLOBULIN RATIO 0.9 (1.1-1.5); ALKALINE PHOSPHATASE 153 IU/L (46-116); ANION GAP 11 (8-16); ASPARTATE AMINO TRANSFERASE 338 U/L (10-37); BILIRUBIN,TOTAL 1.4 MG/DL (0.1-1.0); BLOOD UREA NITROGEN 50 MG/DL (7-18); BUN/CREATININE RATIO 18.7 (5.4-32.0); CALCIUM 8.1 MG/DL (8.5-10.1); CHLORIDE 98 MMOL/L (99-107); CREATININE 2.67 MG/DL (0.60-1.10); GLUCOSE 123 MG/DL (70-104); POTASSIUM 4.8 MMOL/L (3.5-5.1); SODIUM 133 MMOL/L (135-145); TOTAL CARBON DIOXIDE 24.5 MMOL/L (24-32); TOTAL PROTEIN 7.6 G/DL (6.4-8.2); eGFR 24 ML/MIN
[2022-08-29] MEDS: docusate sod 100mg capsule PO SCH ×2 (08:00→20:00)
[2022-08-29] MEDS ORDERED: metoprolol succinate 25mg (24-HOUR) SR. Tablet PO SCH (08:00)
[2022-08-29] MEDS: K and/or MAG REPLACEMENT MC SCH ×2 (08:00→20:00)
[2022-08-29] MEDS ORDERED: losartan 25mg tablet PO SCH (08:00)
[2022-08-29] MEDS: furosemide 40mg/4ml inj IV SCH ×3 (08:00→21:15)
[2022-08-29] MEDS: potassium Cl 20 mEq SR tablet PO SCH (08:11)
[2022-08-29] MEDS: aspirin 81mg tab.chew PO SCH (08:11)
[2022-08-29] MEDS: enoxaparin 40mg/0.4ml syringe SUBCUT SCH (08:11)
[2022-08-29] MEDS: DOBUTamine-DoBUTrex 500mg/D5W 250 ML IV SCH (12:15)
--- NOTE | 2022-08-29 13:17 | NUR ---
page to PICC [id number] Wai. Patient needs line for dobutamine please . Only has PIV now. [email or web address]
[2022-08-29] MEDS ORDERED: normal saline 250ml IV soln 250 ML IV ONE (13:25)
[2022-08-29] MEDS ORDERED: DOPamine 400mg/D5W 250ml 250 ML IV SCH ×3 (13:30→13:34)
--- NOTE | 2022-08-29 15:40 | NUR ---
received from PCU placed on monitor alert and oriented denies discomfort. cap refill 8sec to lower extremites unable to find doppler pulse left DP but doppler PT strong.
[2022-08-29] MEDS ORDERED: milrinone (Primacor) 20mg/D5W 100 ML IV PRN (15:55)
[2022-08-29] MEDS ORDERED: NORepinephrine 8mg/ 250ml NS 250 ML IV PRN (16:00)
--- NOTE | 2022-08-29 17:32 | NUR ---
1250 -- Pt c/o sob. came out of the room to ask for help. RN found pt SOB, BP stable w/ SBP 101, tachypneic in the 20s, O2 SAT low 90s. RN placed NC on pt at 9L and requested additional RN to get non-rebreather. Geeta at bedside and explained to the pt, "You're going to be short of breath, your heart isn't working." RN asked if Dr. Connor has seen pt labs this AM as his AST/ALT was climbing, last BMP was higher than previous draws and the pt seemed to be deteriorating. Geeta told RN he would, "take a look at his chart" and left the room. Geeta paged LEEANNE Godinez for cardiology. Pt VSS, titrated to 4L NC by RN. Pt still has O2 sats in 90s. Pt AOx4. RN placed continuous BP monitor on pt. Dobutamine gtt order placed. See order. 1300 -- RN to start Dobutamine at 5mcg/kg/hr per PCU order. No parameters given. RN spoke to LEEANNE Godinez in person. RN asked what parameters she would like placed on the gtt for the Dobutamine, as it is not a complete order. Gretchen responded, "Uhm, so just start the Dobutamine and then..just..keep..it..running." RN then responded, "Ok, so how do i know what the goal is and when to call you to get permission for titration without parameters?" LEEANNE Godinez then stated, "SBP <80, call me. You are an RN, are you not?" RN then got up to start pt Dobutamine. Pt had only one access, 22g Rt wrist. RN aware that Dobutamine should run through central line. Pt BP 104/73. RN called pharmacy to clarify it if is ok to run through PIV, or if RN should request line. Pharmacy to call RN back. 1315 -- [employer] informed RN that BP in pt room was "alarmingly low" and that the tank charger, Yanci, was in there. RN at bedside to evaluate the pt. Pt still oriented x4, but c/o "feeling sick." RN requested Keri, other waitstaff captain, page PICC RN and cardiology. Irma SMITH started dobutamine, per order at 5mcg/kg/hr. Pt BP 40/28 (32). 1317 -- Cardiology and PICC team. 1318 -- Pt BP 42/17 (21). LUIS Solis titrated Dobutamine to 10mcg/kg/hr. charge master coordinator, Yanci informed. 1319 -- Mental Health Therapist REHAB RNGretchen at bedside. RN informed Gretchen of what was happening and that she, less than 30 seconds ago, titrated pt Dobutamine to 10 mcg. LUIS Solis obtained manual BP. (62/48) BP checked on both arms. Gretchen stopped Dobutamine and ordered a 250 ML NS bolus. 1330 -- Pt IV infiltrated w/ NS bolus. RN went out to find Gretchen to inform her that the IV is infiltrated at that the RN believes he would need a PICC line as it wasn't safe to run Dobutamine through a PIV and the pt was continuing to deteriorate. RN requested order for a PICC line. LEEANNE Godinez, rolled her eyes and aggressively sighed, "Go get me an IV start kit. I don't know why anyone doesn't know how to do their job." LUIS Solis obtained IV start kit for REHAB RN. RN then went to bedside to more closely monitor the pt. RN obtained ambu bag and set up suction in the room due to the RN recognition of the pt's rapid deterioration. RN at bedside frequently (approximately q2-3 min) cycling BP. LEEANNE Godinez states, "Do you know what the definition of madness is?" Pt says, "Yes." LUIS Solis, then looks up and states, "Are you talking to me?" LEEANNE Godinez confirms and says, "I said blood pressure checks every 15 min." LUIS Solis then got up to leave the room and said, "Let me know if you want me to page the PICC team to get a line." REHAB RN unsuccessful at IV placement. 1400-- Cardiology REHAB RN left pt to get ED nurse to come place IV via ultrasound. Once IV was placed, cardiology REHAB RN called Irma SMITH to come help scoot the pt up in bed. REHAB RN informed pt that he was not at all concerned over pt stability and that the her plan is to re-start the Dobutamine "At a much lower rate" than it was running. Order placed to start Dobutamine at 2mcg/kg/hr. Dobutamine restarted at 2mcg/kg/hr per order. LUIS Solis at bedside to monitor pt. 1415 -- Pt AOx4, O2 sats in 90s on 4LNC but pt extremities looking cyanotic. RN unable to palpate pulses in LE/s bilat. RN obtained 3x temps on Pt, they were as following : 91.3 Oral, 93.6 Aux, 94.3 (Aux w a different temp probe) LUIS Solis informed Yanci that the pt desperately needs ICU and that she can't safely take care of him on this unit. LUIS also requested the qm consultant obtain a bairhugger. Yanci told RN that she called ICU tank charger, Azeb, to come to bedside and evaluate the pt as cardiology was not recognizing the rapid deterioration of the pt and the need for him to obtain HLOC and monitoring. 1440 -- braden Bowie RN from ICU, at bedside to evaluate pt. LUIS Solis, advocated again for pt tx to ICU. RN expressed frustration w/ pt deterioration and the RN's inability to help him while on this unit. 1540 -- Pt transferred to ICU w/ LUIS Solis on Dobutamine at 2mcg per order. Family in the waiting room. Bedside report complete. When leaving the ICU, LUIS Solis updated pt family in the waiting room. Care relinquished. Addendum: 08/29/22 at 1841 by Hany Salinas RN 1317 -- Cardiology and PICC team paged.
[2022-08-29] MEDS: amiodarone 200mg tablet PO SCH (21:19)
[2022-08-30] VITALS (20 sets, daily range): BP systolic 97–132; BP diastolic 57–86
[2022-08-30 02:39] LABS: BASOPHILS # (AUTO) 0.1 X10'3 (0-0.2); BASOPHILS % (AUTO) 0.6 % (0-1); EOSINOPHILS % (AUTO) 0.3 % (0-6); HEMATOCRIT 30.7 % (42.0-52.0); HEMOGLOBIN 9.9 g/dl (14.0-17.9); LYMPHOCYTES # (AUTO) 1.4 X10'3 (1.1-4.8); LYMPHOCYTES % (AUTO) 15.3 % (21-51); MEAN CORPUSCULAR HEMOGLOBIN 23.1 PG (27.0-31.0); MEAN CORPUSCULAR HGB CONC 32.3 g/dL (33.0-36.5); MEAN CORPUSCULAR VOLUME 71.6 FL (78-98); MEAN PLATELET VOLUME 9.4 FL (7.4-10.4); MONOCYTES # (AUTO) 0.5 X10'3 (0-0.9); MONOCYTES % (AUTO) 4.9 % (2-12); NEUTROPHILS # (AUTO) 7.3 X10'3 (1.8-7.7); NEUTROPHILS % (AUTO) 78.9 % (42-75); PLATELET COUNT 231 X10'3 (140-440); RED BLOOD COUNT 4.29 X10'6 (4.70-6.10); RED CELL DISTRIBUTION WIDTH 17.2 % (11.5-14.5); WHITE BLOOD COUNT 9.2 X10'3 (4.5-11.0)
[2022-08-30 02:53] LABS: ALANINE AMINOTRANSFERASE 560 U/L (12-78); ALBUMIN 3.4 G/DL (3.4-5.0); ALKALINE PHOSPHATASE 140 IU/L (46-116); ANION GAP 11 (8-16); ASPARTATE AMINO TRANSFERASE 653 U/L (10-37); BILIRUBIN,TOTAL 1.1 MG/DL (0.1-1.0); BLOOD UREA NITROGEN 60 MG/DL (7-18); BUN/CREATININE RATIO 21.7 (5.4-32.0); CALCIUM 7.9 MG/DL (8.5-10.1); CHLORIDE 98 MMOL/L (99-107); CREATININE 2.76 MG/DL (0.60-1.10); GLUCOSE 114 MG/DL (70-104); POTASSIUM 4.4 MMOL/L (3.5-5.1); SODIUM 135 MMOL/L (135-145); TOTAL CARBON DIOXIDE 25.7 MMOL/L (24-32); TOTAL PROTEIN 6.9 G/DL (6.4-8.2); eGFR 23 ML/MIN
[2022-08-30] MEDS: furosemide 40mg/4ml inj IV SCH ×3 (07:36→21:39)
[2022-08-30] MEDS: enoxaparin 40mg/0.4ml syringe SUBCUT SCH (07:36)
[2022-08-30] MEDS: potassium Cl 20 mEq SR tablet PO SCH (07:36)
[2022-08-30] MEDS: aspirin 81mg tab.chew PO SCH (07:36)
[2022-08-30] MEDS: docusate sod 100mg capsule PO SCH ×2 (07:36→21:40)
[2022-08-30] MEDS: K and/or MAG REPLACEMENT MC SCH ×2 (08:00→20:00)
--- NOTE | 2022-08-30 13:39 | NUR ---
Initial: Pt admit for CHF exacerbation. Currently on a heart healthy diet with 1.5 L fluid restriction and overall eating well, documented with average 68% PO intake with refusal of one meal since admit. Current PO intake is meeting roughly 79% estimated energy needs and 90% estimated protein needs. Will monitor further trends in PO intake and need for nutrition intervention as pt just transferred to CICU and no documentation of PO intake for today. LB 08/29. Will continue to follow. Recommendations: 1) Continue heart healthy diet, 1.5 L fluid restriction per physician 2) Monitor need for ONS, may benefit from Ensure Plus HP BID 3) Routine bowel care 4) Weekly scaled weights Addendum: 08/30/22 at [address] Amended: Links added.
[2022-08-30] MEDS: DOBUTamine-DoBUTrex 500mg/D5W 250 ML IV SCH (18:00)
--- NOTE | 2022-08-30 18:20 | NUR ---
noticed pt has dobuatime drip. verified order and drip rate on [employer] and with prior RN. informed monorail charger operator jeremiah that I would monitor pt's blood pressure and heart rate but she would be in charge of anything having to do with the drip. found protocol for dobutamine drip for PCU. concentration 2000mg/250ml. pt monitored by BP monitor q1h BP. daily wt. strick I/O and peripheral pulse monitoring. noted orders from [facility] for different medication if MAP drops under 60. will monitor. drip is NOT titratable. will notify MD for chest pain, sob, tachy or ventricular arrhythmias or decreased urine output.
--- NOTE | 2022-08-30 18:32 | NUR ---
Problems reprioritized. Patient report given, questions answered & plan of care reviewed with Matthew.
--- NOTE | 2022-08-30 21:30 | NUR ---
placed CHANDU hose on patient. thigh high. non skid socks over feet.
[2022-08-30] MEDS: heparin, porcine 5000 units/ml vial SQ SCH (21:40)
[2022-08-30] MEDS: amiodarone 200mg tablet PO SCH (21:40)
[2022-08-31] VITALS (9 sets, daily range): BP systolic 89–116; BP diastolic 53–86
--- NOTE | 2022-08-31 06:11 | NUR ---
reported to days. noted pt resting - plenty of urine output, clear yellow. am labs drawn - watching liver enzymes. pt reported that his son contacted [employer] and they will bring him new batteries and a new gyro compass tester today.
[2022-08-31 07:27] LABS: BASOPHILS # (AUTO) 0.1 X10'3 (0-0.2); BASOPHILS % (AUTO) 0.9 % (0-1); EOSINOPHILS # (AUTO) 0.1 X10'3 (0-0.9); EOSINOPHILS % (AUTO) 1.7 % (0-6); HEMATOCRIT 32.1 % (42.0-52.0); HEMOGLOBIN 10.3 g/dl (14.0-17.9); LYMPHOCYTES # (AUTO) 1.2 X10'3 (1.1-4.8); LYMPHOCYTES % (AUTO) 16.2 % (21-51); MEAN CORPUSCULAR HEMOGLOBIN 22.9 PG (27.0-31.0); MEAN CORPUSCULAR HGB CONC 31.9 g/dL (33.0-36.5); MEAN CORPUSCULAR VOLUME 71.7 FL (78-98); MONOCYTES # (AUTO) 0.7 X10'3 (0-0.9); MONOCYTES % (AUTO) 9.1 % (2-12); NEUTROPHILS # (AUTO) 5.5 X10'3 (1.8-7.7); NEUTROPHILS % (AUTO) 72.1 % (42-75); PLATELET COUNT 253 X10'3 (140-440); RED BLOOD COUNT 4.48 X10'6 (4.70-6.10); RED CELL DISTRIBUTION WIDTH 17.5 % (11.5-14.5); WHITE BLOOD COUNT 7.6 X10'3 (4.5-11.0)
[2022-08-31] MEDS: docusate sod 100mg capsule PO SCH ×2 (08:00→20:00)
[2022-08-31] MEDS: K and/or MAG REPLACEMENT MC SCH ×2 (08:00→20:00)
[2022-08-31 08:47] LABS: ALANINE AMINOTRANSFERASE 422 U/L (12-78); ALBUMIN 3.6 G/DL (3.4-5.0); ALKALINE PHOSPHATASE 147 IU/L (46-116); ANION GAP 9 (8-16); ASPARTATE AMINO TRANSFERASE 195 U/L (10-37); BILIRUBIN,TOTAL 0.9 MG/DL (0.1-1.0); BLOOD UREA NITROGEN 47 MG/DL (7-18); BUN/CREATININE RATIO 23.5 (5.4-32.0); CALCIUM 8.1 MG/DL (8.5-10.1); CHLORIDE 99 MMOL/L (99-107); GLUCOSE 89 MG/DL (70-104); SODIUM 137 MMOL/L (135-145); TOTAL CARBON DIOXIDE 28.7 MMOL/L (24-32); TOTAL PROTEIN 7.3 G/DL (6.4-8.2); eGFR 33 ML/MIN
[2022-08-31] MEDS: aspirin 81mg tab.chew PO SCH (08:55)
[2022-08-31] MEDS: furosemide 40mg/4ml inj IV SCH ×2 (08:55→20:16)
[2022-08-31] MEDS: potassium Cl 20 mEq SR tablet PO SCH (08:56)
[2022-08-31] MEDS: heparin, porcine 5000 units/ml vial SQ SCH ×2 (08:56→20:21)
[2022-08-31] MEDS: amiodarone 200mg tablet PO SCH (21:29)
[2022-09-01 02:00] VITALS: BP 108/58
[2022-09-01 07:20] VITALS: BP 103/83
[2022-09-01] MEDS: docusate sod 100mg capsule PO SCH (08:00)
[2022-09-01] MEDS: K and/or MAG REPLACEMENT MC SCH (08:00)
[2022-09-01] MEDS: furosemide 40mg/4ml inj IV SCH (08:55)
[2022-09-01] MEDS: aspirin 81mg tab.chew PO SCH (08:56)
[2022-09-01] MEDS: heparin, porcine 5000 units/ml vial SQ SCH (08:56)
[2022-09-01] MEDS: potassium Cl 20 mEq SR tablet PO SCH (08:57)
[2022-09-01 11:30] VITALS: BP 113/73
[2022-09-01 15:07] VITALS: BP 114/71
--- NOTE | 2022-09-01 15:20 | NUR ---
Pt removed his tele leads while adjusting his life vest. Asked Dr Connor if pt needed them back on for observation and he said pt didn't need them on. I took tele back to office. Will continue top monitor pt until DC.
[2022-09-01] MEDS ORDERED: LISI5TAB22 PO (15:57)
[2022-09-01] MEDS ORDERED: FURO40TA4 PO (15:57)
--- NOTE | 2022-09-01 17:13 | NUR ---
Pt was DC'd as per 's orders. Tele and all IV's were unhooked from pt. DC education and medication education was provided in room to pt and family members. All questions were answered and pt said they were ready to leave. Pt already had follow up appointment scheduled with doctor and will waste picker new meds at their preferred pharmacy. All belongings were gathered by pt and sent home with family. I wheeled pt down to the lobby in a wheelchair, and pt left for home in private vehicle driven by family.
== END 2022-09-01 16:55 | disposition home health service (06) | DRG 280 ==
LOC: ER 00:36 → ED HOLD 02:52 → PCU 3S 07:49 → CICU 2S 08-29 14:25 → PCU 3S 08-30 16:10
PROVIDERS: ADMIT Internal Medicine; ATTEND Family Medicine
PROC: 02HV33Z Insertion of Infusion Device into Superior Vena Cava, Percutaneous Approach (ICD-10-PCS; principal; 2022-08-29)
DX: I13.0 Hypertensive heart and chronic kidney disease with heart failure and stage 1 through stage 4 chronic kidney disease, or unspecified chronic kidney disease (principal); I50.23 Acute on chronic systolic (congestive) heart failure; I21.A1 Myocardial infarction type 2; N17.0 Acute kidney failure with tubular necrosis; E78.5 Hyperlipidemia, unspecified; M10.9 Gout, unspecified; I95.9 Hypotension, unspecified; R06.82 Tachypnea, not elsewhere classified; I25.10 Atherosclerotic heart disease of native coronary artery without angina pectoris; F12.90 Cannabis use, unspecified, uncomplicated; N18.9 Chronic kidney disease, unspecified; E87.6 Hypokalemia; R74.01 Elevation of levels of liver transaminase levels; I25.5 Ischemic cardiomyopathy; I48.91 Unspecified atrial fibrillation; I73.9 Peripheral vascular disease, unspecified; Z79.82 Long term (current) use of aspirin; Z86.73 Personal history of transient ischemic attack (TIA), and cerebral infarction without residual deficits; I25.2 Old myocardial infarction; Z87.891 Personal history of nicotine dependence; Z88.0 Allergy status to penicillin; Z95.1 Presence of aortocoronary bypass graft; Z79.899 Other long term (current) drug therapy; Z79.01 Long term (current) use of anticoagulants
CPT/HCPCS: 36410; 36415; 71045; 76937; 80053; 82948; 83735; 83880; 84484; 85025; 87081; 93005; 93308; 99285; A4333; A6213; A6258; A6449; C1751; G0378; J1250; J1644; J1650; J1940; J2060; J2270; J7040; J7050

== ENCOUNTER 2023-03-01 11:20 | Emergency (ER) | payer MEDICARE ==
[~2023-03-01] VITALS: Ht 180.3 cm; Wt 84.0 kg
[~2023-03-01 11:20] MED LIST changes: +AMI200T PO; -AMIO200T67 PO; +ASPI-1265 PO; -CARV-50 PO; +FURO40TA4 PO; +LISI5TAB22 PO; -MELA3TAB70 PO; -POTA-206 PO; +POTA-366 PO
[2023-03-01 11:30] VITALS: BP 139/90
[2023-03-01] MEDS ORDERED: methylPREDNISolone sod succ 125mg/2ml vial IM ONE (13:40)
[2023-03-01] MEDS ORDERED: METH4TAB81 PO (13:50)
== END 2023-03-01 14:12 | disposition home or self-care (01) ==
LOC: ER 11:20
DX: M10.9 Gout, unspecified (principal); M25.532 Pain in left wrist; I50.9 Heart failure, unspecified; F12.90 Cannabis use, unspecified, uncomplicated; Z88.0 Allergy status to penicillin; Z91.018 Allergy to other foods
CPT/HCPCS: 96372; 99283; J2930

== ENCOUNTER 2023-05-20 11:47 | Day surgery (SDC) | payer MEDICARE ==
[2023-05-20] VITALS (10 sets, daily range): BP systolic 136–160; BP diastolic 75–104; PULSE 52–82; RESP 14–16; TEMP 98.8; O2SAT 92–100
[~2023-05-20] VITALS: Ht 180.3 cm; Wt 84.8 kg
[~2023-05-20 11:47] MED LIST changes: +METH4TAB81 PO
[2023-05-20] MEDS ORDERED: fentaNYL/PF 50MCG/1 ML 2ML syringe IV ONE (12:15)
[2023-05-20] MEDS ORDERED: normal saline 1000ml 1,000 ML IV SCH (12:15)
[2023-05-20] MEDS ORDERED: MIDAZolam 1mg/ml 10ml vial IV ONE (12:15)
[2023-05-20] MEDS ORDERED: LOSA100T58 PO (12:18)
[2023-05-20] MEDS ORDERED: MELO-102 PO (12:18)
[2023-05-20] MEDS ORDERED: METO-395 PO (12:18)
[2023-05-20] MEDS ORDERED: FURO-149 PO (12:21)
== END 2023-05-20 14:40 | disposition home or self-care (01) ==
LOC: SSTAY O 11:47
PROVIDERS: ATTEND Student in an Organized Health Care Education/Training Program
DX: I08.1 Rheumatic disorders of both mitral and tricuspid valves (principal); I25.10 Atherosclerotic heart disease of native coronary artery without angina pectoris; E78.5 Hyperlipidemia, unspecified; I25.5 Ischemic cardiomyopathy; I13.0 Hypertensive heart and chronic kidney disease with heart failure and stage 1 through stage 4 chronic kidney disease, or unspecified chronic kidney disease; N18.9 Chronic kidney disease, unspecified; I50.22 Chronic systolic (congestive) heart failure; I42.0 Dilated cardiomyopathy; M10.9 Gout, unspecified; I48.91 Unspecified atrial fibrillation; Z79.899 Other long term (current) drug therapy; Z79.82 Long term (current) use of aspirin; Z95.1 Presence of aortocoronary bypass graft; Z91.018 Allergy to other foods; Z88.0 Allergy status to penicillin; Z86.73 Personal history of transient ischemic attack (TIA), and cerebral infarction without residual deficits
CPT/HCPCS: 93312; 93325; J2250; J3010; J7030; A4620

== ENCOUNTER 2024-01-07 04:05 | Emergency (ER) | payer MEDICARE ==
[~2024-01-07] VITALS: Ht 180.3 cm; Wt 89.0 kg
[~2024-01-07 04:05] MED LIST changes: +FURO-149 PO; -FURO40TA4 PO; -LISI5TAB22 PO; +LOSA100T58 PO; +MELO-102 PO; -METH4TAB81 PO; +METO-395 PO; -POTA-366 PO; +SPIR25TA5 PO
[2024-01-07 04:09] VITALS: BP 148/73; PULSE 64; RESP 18; TEMP 97.8; O2SAT 99
== END 2024-01-07 07:49 | disposition left against medical advice (07) ==
LOC: ER 04:07
DX: M25.521 Pain in right elbow (principal); Z53.21 Procedure and treatment not carried out due to patient leaving prior to being seen by health care provider